=== PATIENT | female | born 1945 | race Caucasian/White ===

== ENCOUNTER 2016-12-29 08:47 | Day surgery (SDC) | payer MEDICARE ==
[~2016-12-29] VITALS: Ht 170.2 cm; Wt 85.0 kg
[2016-12-29] VITALS (9 sets, daily range): BP systolic 123–178; BP diastolic 60–83; PULSE 68–80; RESP 16–20; TEMP 98.1–98.2; O2SAT 93–97
[~2016-12-29 08:47] MED LIST: ACIP20TA19 PO; ESTR42.5V PV; HYDR-2768 PO; LIPI40TA PO; LYRI50CA2 PO; METF-324 PO; NAPR-576 PO; POTA595T2 PO; TORS20 PO
[2016-12-29] MEDS ORDERED: SODIUM CHLOR 0.9% 1000 ML IV SCH (09:00)
[2016-12-29] MEDS ORDERED: ACIP20TA6 PO (09:22)
[2016-12-29] MEDS ORDERED: POTA595T (09:22)
[2016-12-29] MEDS ORDERED: METF1000 PO (09:22)
[2016-12-29] MEDS ORDERED: LYRI50CA PO (09:22)
[2016-12-29] MEDS ORDERED: EPIN0.3A2 (09:22)
[2016-12-29] MEDS ORDERED: TORS1TAB12 PO (09:22)
[2016-12-29] MEDS ORDERED: NAPR500T PO (09:22)
[2016-12-29] MEDS ORDERED: LIPI40TA PO (09:22)
[2016-12-29 09:50] LABS: AUTOMATED NEUTROPHIL # 8.1 TH/MM3 (1.8-7.7); BASOPHIL # 0.1 TH/MM3 (0-0.2); BASOPHIL % 0.8 % (0.0-2.0); EOSINOPHIL # 0.2 TH/MM3 (0-0.4); EOSINOPHIL % 1.9 % (0.0-4.0); HEMATOCRIT 35.9 % (35.0-46.0); HEMO FLAGS DIFF FINAL; LYMPH % 19.4 % (9.0-44.0); LYMPHOCYTE # 2.2 TH/MM3 (1.0-4.8); MEAN CELL VOLUME 75.7 FL (80.0-100.0); MEAN CORPUSCULAR HEMOGLOBIN 22.8 PG (27.0-34.0); MEAN CORPUSCULAR HGB CONC 30.2 % (32.0-36.0); MONO % 5.4 % (0.0-8.0); NEUT % 72.5 % (16.0-70.0); PLATELET COUNT 385 TH/MM3 (150-450); RED BLOOD COUNT 4.74 MIL/MM3 (4.00-5.30); RED CELL DISTRIBUTION WIDTH 17.9 % (11.6-17.2); WHITE BLOOD COUNT 11.1 TH/MM3 (4.0-11.0)
[2016-12-29 10:03] LABS: APTT (PATIENT) 24.5 SEC (24.3-30.1)
[2016-12-29] MEDS ORDERED: LIDOCAINE 1%/EPINEPHrine 1:100,000 SOLN 20 ML VIAL ONE (11:29)
[2016-12-29] MEDS ORDERED: MIDAZOLAM HCL 2 MG/2 ML VIAL ONE ×2 (11:49)
--- NOTE | 2016-12-29 12:25 | PD.RAD ---
Post CT Procedure Prog Note Pre Procedure Diagnosis: (1) Hepatic steatosis Post Procedure Diagnosis: (1) Hepatic steatosis Procedure Date: Dec 29, 2016 Supervising Radiologist: Tera Segundo Estimated blood loss: none Anesthesia: Conscious Sedation Plan of Activity Patient to Unit: ROPU Patient Condition: Good Additional Comments: no complications See PACS Report for procedural detail/treatment Biopsy Imaging Guidance: CT Side: Left, Right Biopsy Procedure: Liver Site: left lobe liver--random biopsy Specimen: Core Biopsy Plan to ROPU then discharge in 4 hours if d/c criteria met. Tera Segundo MD Dec 29, 2016 12:25
--- NOTE | 2016-12-29 13:04 | RADRPT ---
EXAM DATE/TIME: 12/29/2016 12:04 [place] COMPARISON: No previous studies available for comparison. Outside CT and ultrasound examination were reviewed. INDICATIONS : Elevated liver function tests. SEDATION TIME: 15 minutes BIOPSY SITE: liver MEDICATION(S): 1.) 4 mg midazolam (Versed) IV DEVICE(S): 1.) 18 gauge Temno core biopsy needle MEDICAL HISTORY : Diabetes mellitus type 2. Renal calculi. Gastroesophageal reflux disease. SURGICAL HISTORY : Hysterectomy. Appendectomy. ENCOUNTER: Initial ACUITY: 1 day PAIN SCORE: 0/10 LOCATION: Bilateral abdomen A total of two core specimen(s) were obtained and sent to the laboratory for pathologic evaluation. PROCEDURE: 1. CT guided liver biopsy. 2. Conscious sedation with continuous EKG and oximetry monitoring. 3. EKG and oximetry remained stable throughout the procedure. Prior to the procedure informed consent was obtained. Any appropriate prior imaging studies were rev iewed. Using automated exposure control and adjustment of the mA and/or kV according to patient size, radiat ion dose was kept as low as reasonably achievable to obtain optimal diagnostic quality images. DICOM format image data is available electronically for review and comparison. The site was prepped in a sterile fashion. Full sterile technique was used, including cap, mask, mattie rile gloves and gown and a large sterile sheet. Hand hygiene and 2% chlorhexidine and/or betadine/al cohol prep was utilized per protocol for cutaneous antisepsis. The skin and subcutaneous tissues wer e infiltrated with local anesthetic solution. With CT guidance the left lobe of the liver was localized. Biopsy was performed using the prescribed needle as above. Adequate hemostasis was obtained with compression at the puncture site. Follow-up CT scan reveals no hemorrhage. The patient tolerated the procedure well and there were no complications. The patient was returned to the Radiology Outpatient Unit in stable condition. CONCLUSION: Uncomplicated CT guided liver biopsy. Tera Segundo MD on December 29, 2016 at 13:01 Board Certified Radiologist. This report was verified electronically.
== END 2016-12-29 15:45 | disposition home or self-care (01) ==
LOC: HRAD 08:47 → HRIP 08:50 → HRAD 15:45
DX: K75.81 Nonalcoholic steatohepatitis (NASH) (principal); E11.9 Type 2 diabetes mellitus without complications; K21.9 Gastro-esophageal reflux disease without esophagitis; N20.0 Calculus of kidney; Z01.818 Encounter for other preprocedural examination
CPT/HCPCS: 47000; 77012; 85025; 85610; 85730; 88307; 88313; J2250

== ENCOUNTER 2018-07-27 10:00 | Inpatient (IN) ==
--- NOTE | 2018-07-26 14:36 | P.HPNS ---
History of Present Illness Service: Neurosurgery Primary Care Physician: UNKNOWN Chief Complaint: Low back pain radiating down bilateral lower extremities. History of Present Illness: Pt presented to our office for an evaluation of low back pain radiating into the lower extremities right more than left. She states the pain radiates into the posterior aspect but not past the knee usually, sometimes it goes into the foot. She has numbness in the heel. She states her worst pain is in the back. She has pain in bilateral buttocks. She states she has a left foot drop but ambulates without any walker, cane, or AFO brace. She denies any bowel or bladder incontinence but has urgency of urine. She had physical therapy which didn't help. She has been to her Magnet[facility] Operator who did trigger point injections which didn't help. She has not had any pain management recently but states she has had it in the past. - Diagnosis (1) Degenerative spondylolisthesis (2) Degeneration of lumbar intervertebral disc (3) Diabetic peripheral neuropathy Inpatient Certification: I certify that the inpatient services were ordered in accordance with Medicare regulations governing the order. This includes certification that hospital inpatient services are reasonable and necessary and in the case of services not specified as inpatient-only under 42 CFR 419.22(n), that they are appropriately provided as inpatient services in accordance to with the 2-midnight benchmark under 43 CFR 412.3(e) Review of Systems Constitutional: Denies chills, Denies fever(s) Eyes: Denies blurry vision, Denies double vision Ears, Nose, Mouth, and Throat: Denies hoarseness, Denies nasal congestion, Denies sinus pain, Denies sore throat Cardiovascular: Denies chest pain, Denies shortness of breath Respiratory: Denies cough, Denies shortness of breath, Denies wheezing Gastrointestinal: Denies abdominal pain, Denies constipation, Denies incontinent of stools Genitourinary: Reports urinary urgency, Denies urinary incontinence Musculoskeletal: Reports back pain, Reports muscle weakness, Reports numbness ( In right heel.) Neurologic: Reports localized weakness, Reports numbness (right heel.), Reports sensory deficit (Right heel.), Denies memory loss Psychiatric: Denies memory loss [facility] - History History Provided By: Patient - Medical History Medical History: Medical History (Last Reviewed 07/27/18 @ 11:56 by Mohini Gian, RN) Back pain DDD (degenerative disc disease) Fibromyalgia Gastric reflux Herniated disc History of high cholesterol Hx of diabetes mellitus Hx of renal calculi Skin cancer Sleep apnea with use of continuous positive airway pressure (CPAP) - Surgical History Surgical History: Surgical History (Last Reviewed 07/27/18 @ 11:56 by Mohini Springer RN) History of cataract extraction with lens replacement Hx of appendectomy Hx of section Hx of lithotripsy Hx of oophorectomy - Family History Family History: Family History (Last Updated 07/26/18 @ 15:15 by MINISTERIO Grayson) Father Myocardial infarction Mother Colon cancer Sister Breast cancer - Social History I have reviewed the patient's Social History: Yes - Tobacco History Second Hand Smoke Exposure: No Smoking Status: Never smoker - Alcohol History How Often Do You Have a Drink Containing Alcohol: Never - Substance Use History Substance History: No History of Abuse Medications and Allergies Allergies Allergy/AdvReac Type Severity Reaction Status Date / Time bee venom protein (honey bee) Allergy Severe Anaphylaxis Verified 07/27/18 12:07 codeine Allergy Severe Hives Verified 07/27/18 12:07 hydrocodone Allergy Severe HIVES Verified 07/27/18 12:07 hydromorphone Allergy Severe HIVES Verified 07/27/18 12:07 Latex, Natural Rubber Allergy Severe Skin Verified 07/27/18 12:07 Discoloration oxycodone Allergy Severe Hives Verified 07/27/18 12:07 penicillin G Allergy Severe Hives Verified 07/27/18 12:07 propoxyphene Allergy Severe HIVES Verified 07/27/18 12:07 tramadol Allergy Respiratory Verified 07/27/18 12:07 Failure Home Medications Medication Instructions Recorded Confirmed Type ascorbic acid (vitamin C) [Vitamin 500 mg PO BID 02/13/18 07/27/18 History C] atorvastatin 40 mg PO DAILY 02/13/18 07/27/18 History cholecalciferol (vitamin D3) 2,000 unit PO DAILY 02/13/18 07/27/18 History [Vitamin D3] gabapentin 300 mg PO QID 02/13/18 07/27/18 History glipizide 7.5 mg PO DAILY 02/13/18 07/27/18 History metformin 500 mg PO BID 02/13/18 07/27/18 History omeprazole 20 mg PO DAILY 02/13/18 07/27/18 History potassium gluconate 550 mg PO BID 02/13/18 07/27/18 History torsemide 20 mg PO DAILY 02/13/18 07/27/18 History epinephrine [EpiPen] 0.3 mg IM Q15M PRN 07/20/18 07/27/18 History vitamin E 400 unit PO DAILY 07/20/18 07/27/18 History Exam - Constitutional no acute distress, cooperative - Routine HEENT Exam Head: Present: normocephalic, atraumatic Eye: Present: PERRL. Absent: conjunctival icterus ENT: Present: mucous membranes moist, oropharynx clear - Routine Neck Exam Present: supple, trachea midline - Routine Respiratory Exam Present: CTA bilaterally. Absent: respiratory distress, rhonchi, wheezes - Routine Cardiovascular Exam Present: RRR, S1, S2. Absent: murmur - Routine Abdominal Exam Present: soft, normoactive bowel sounds. Absent: distended, firm - Routine Extremities Exam Absent: cyanosis - Routine Skin Exam Absent: cyanosis, erythema - Routine Neurological Exam Present: motor deficit (She has 4/5 left dorsiflexion weakness.), moving all extremities. Absent: alert, oriented X3, altered mental status Caprini VTE Risk Assessment Caprini VTE Risk Assessment: Moderate/High Risk (score >= 2) VTE Pharmacological Exception Reason: Spinal surgery Caprini Risk Assessment Model: Point Value = 1 Point Value = 2 Point Value = 3 Point Value = 5 Age 41-60 Minor surgery BMI > 25 kg/m2 Swollen legs Varicose veins or History of unexplained or recurrent spontaneous Oral contraceptives or hormone replacement Sepsis (< 1 month) Serious lung disease, including pneumonia (< 1 month) Abnormal pulmonary function Acute myocardial infarction Congestive heart failure (< 1 month) History of inflammatory bowel disease Medical patient at bed rest Age 61-74 Arthroscopic surgery Major open surgery (> 45 min) Laparoscopic surgery (> 45 min) Malignancy Confined to bed (> 72 hours) Immobilizing plaster cast Central venous access Age >= 75 History of VTE Family history of VTE Factor V Leiden Prothrombin [id number] Lupus anticoagulant Anticardiolipin antibodies Elevated serum homocysteine Heparin-induced thrombocytopenia Other congenital or acquired thrombophilia Stroke (< 1 month) Elective arthroplasty Hip, pelvis, or leg fracture Acute spinal cord injury (< 1 month) Prophylaxis Regimen: Total Risk Factor Score Risk Level Prophylaxis Regimen 0-1 Low Early ambulation 2 Moderate Order ONE of the following: *Sequential Compression Device (SCD) *Heparin 5000 units SQ BID 3-4 Higher Order ONE of the following medications: *Heparin 5000 units SQ TID *Enoxaparin/Lovenox 40 mg SQ daily (WT < 150 kg, CrCl > 30 mL/min) *Enoxaparin/Lovenox 30 mg SQ daily (WT < 150 kg, CrCl > 10-29 mL/min) *Enoxaparin/Lovenox 30 mg SQ BID (WT < 150 kg, CrCl > 30 mL/min) AND/OR *Sequential Compression Device (SCD) 5 or more Highest Order ONE of the following medications: *Heparin 5000 units SQ TID (Preferred with Epidurals) *Enoxaparin/Lovenox 40 mg SQ daily (WT < 150 kg, CrCl > 30 mL/min) *Enoxaparin/Lovenox 30 mg SQ daily (WT < 150 kg, CrCl > 10-29 mL/min) *Enoxaparin/Lovenox 30 mg SQ BID (WT < 150 kg, CrCl > 30 mL/min) AND *Sequential Compression Device (SCD) Assessment and Plan - Assessment (1) Degenerative spondylolisthesis Code(s): M43.10 - Spondylolisthesis, site unspecified Status: Acute (2) Degeneration of lumbar intervertebral disc Code(s): M51.36 - Other intervertebral disc degeneration, lumbar region Status : Acute (3) Diabetic peripheral neuropathy Code(s): E11.42 - Type 2 diabetes mellitus with diabetic polyneuropathy Status : Acute - Plan We have discussed treatment options with the patient which include continued conservative treatment options versus surgical intervention. She states she her pain is affecting her life. She complains of weakness in her legs. She wants to proceed with surgical intervention. Dr. Mckoy has discussed with the patient a L4/L5 and L5/S1 interbody fusion with cage and pedicle screw fixation. The procedure as well as risks, benefits, alternative, and recovery time were discussed in detail with the patient. We have discussed risks of surgery include bleeding, infection, muscle weakness, voice hoarseness, difficulty swallowing, heart attack, stroke, among others. She understands the risks and request that we proceed and she was therefore scheduled accordingly.
[~2018-07-27 10:00] MED LIST changes: -ACIP20TA19 PO; -ESTR42.5V PV; +Gelatin Size 100 Topical Foam ONE; -HYDR-2768 PO; -LIPI40TA PO; -LYRI50CA2 PO; -METF-324 PO; -NAPR-576 PO; -POTA595T2 PO; -TORS20 PO; +Thrombin Topical Soln 5,000 UNIT Vial TOPICAL ONE
[2018-07-27] MEDS ORDERED: Propofol Inj 500 MG/50 ML Vial ONE (12:12)
[2018-07-27] MEDS ORDERED: fentaNYL Citrate Inj 250 MCG/5 ML Ampul ONE (12:12)
[2018-07-27] MEDS ORDERED: Chlorhexidine Gluconate 2% 1 Pack (2 Cloths) TOPICAL ONE (12:44)
[2018-07-27] MEDS ORDERED: Metoprolol Tartrate 25 MG Tablet PO ONE (12:44)
[2018-07-27] MEDS ORDERED: Sodium Chlor 0.9% Inj 500 ML IV.SIG SCH (13:00)
[2018-07-27] MEDS ORDERED: Sod Chloride 0.9% Inj 1,000 ML IV.SIG SCH (13:00)
[2018-07-27] MEDS ORDERED: Lidocaine PF 1% Inj 5 ML Syringe INFILTRATN ONE (13:14)
[2018-07-27] MEDS ORDERED: Bupivacaine Liposomal PF 1.3% Inj 20 ML Vial ONE (16:54)
[2018-07-27] MEDS ORDERED: Naloxone Inj 0.4 MG/ML Vial IV.PUSH PRN (18:37)
[2018-07-27] MEDS ORDERED: fentaNYL Citrate Inj 100 MCG/2 ML Ampul ONE (18:41)
[2018-07-27] MEDS ORDERED: Morphine Inj 4 MG/ML Vial ONE (18:41)
[2018-07-27] MEDS ORDERED: Bisacodyl 10 MG Supp RECTAL PRN (18:42)
[2018-07-27] MEDS ORDERED: Labetalol HCl Inj 100 MG/20 ML Vial IV.PUSH PRN (18:54)
[2018-07-27] MEDS ORDERED: Acetaminophen 325 MG Tablet PO PRN (18:59)
[2018-07-27] MEDS ORDERED: Morphine Inj 30 MG/30 ML PCA.VIAL PCA ONE (18:59)
--- NOTE | 2018-07-27 18:59 | P.OP ---
Preoperative Diagnosis: Lumbar spondylolisthesis Mechanical back pain Lumbar radiculopathy Postoperative Diagnosis: Lumbar spondylolisthesis Mechanical back pain Lumbar radiculopathy Date of procedure: 07/27/18 Procedure: L4-L5, L5-S1 right laminectomy, interbody arthrodhesis using PEEK cage and autologous bone graft, L4-L5 instrumental fixation using transpedicular screws and rods, L4-L5 posterolateral fusion using autologous bone graft and demineralized bone matrix. Microsurgical dissection Anesthesia: GETA Surgeon: Azar Mckoy MD Addiction Professional: DARIUS Grayson Pathology: none sent Operation and Findings: INDICATIONS FOR THE SURGICAL PROCEDURE Ms Snider is a 73 year-old female who presented with intractable mechanical back pain and karen evidence of lower extremity radiculopathy secondary to severe degenerative disk disease and spondylolisthesis. 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 She failed maximum nonsurgical management including multiple modalities of conservative treatment as well as pain management interventions by an interventional pain specialist. A surgical decompression and arthrodhesis were indicated as a last resort. The gauy-ry-mrib details of the procedure, indications, alternatives, risks and potential complications were fully discussed with the patient. The patient fully understood. All the questions were answered. No guarantees were given. The patient voiced requesting the procedure and provided informed consents. The patient was offered the alternative of delaying the procedure and continuing with nonsurgical management. DETAILS OF THE SURGICAL PROCEDURE Prior to the procedure, the surgical incision was marked in the preoperative surgical holding room, and the procedure, risks, and potential complications revisited with the patient. Placement of electrodes for intraoperative neurophysiological monitoring was completed. The patient was taken to the operative room, and following induction of general anesthesia, endotracheal intubation was performed. A Ruelas catheter, bilateral RAHUL hose and sequential compression devices were placed and kept throughout the procedure. The patient was positioned prone, over a Leland table over a Mariano frame. All pressure in the preoperative surgical holding room points were carefully padded with eggcrate and gel mattress. The eyes were tapped shut after ointment was applied by the nesthesiologist to prevent corneal abrasion. A Xochitl hugger was placed over the exposed lower body to maintain control of the core body temperature. The electrophysiological team placed the needles and electrodes in their proper location and baseline SSEP's and motor evoked potentials were registered prior and following the positioning. The entrance to each pedicles was marked using a C arm. The lumbar region was prepped and draped in the usual sterile fashion. The surgical procedure was performed in several steps as follow: SURGICAL APPROACH Once the patient was positioned, a localizing cross-table lateral x-ray was performed with a C-arm. Two paramedian small incisions were outlined on the skin approximately 3cm from the midline. The skin incisions were made with a # 10 blade. Small bleeders were controlled with the cautery. The dissection was then carried out into deper planes and through the thoracolumbar fascia with a Bovie. The intermuscular septum was identified and the myscles were blunted dissected along the septum. The facets and transverse process of L4, L5 and S1 were exposed and the proper anatomical landmarks were identidied. A microsurgical self-retaining retractor was placed on the incision, and a localizing lateralizing cross-table x-ray was performed with an instrument underneath a lamina of the lumbar spine. There was a bilateral pars defect with gross instability of the bony structures. INSTRUMENTAL FIXATION At this point in the procedure, placement of bilateral transpedicular screws was necessary for stabilization of the spine. Initially, the entry point for the screw was selected anatomically at the junction of the facet, with the transverse process, and the pars interarticularis at L5 and at the sacrum. This was started with a Giamshetti needle followed by the use of a egan wire. A tap was used to create the threads for the screws. Finally bilateral transpedicular screws were carefully placed bilaterally at L4, L5, and and S1 under fluoroscopic visualization. An appropriate purchase was achieved with all screws. The position of each screw was assessed anatomically with an AP, lateral , oblique Xrays. An intraoperative scan view of the spine was then performed using the iso-centric c-arm. Each screw was then assessed electrophysiologically with a nerve stimulator. SURGICAL DECOMPRESSION There was significant mass effect with compression of the neural structures. In order to relieve neural compression, it was necessary to perform a decompressive laminectomy, with decompression of the spinal canal and bilateral lateral recesses. Note that the scope of such decompression was significantly more extensive than the minimal exposure necessary to perform an interbody fusion, as there was extreme facet arthropathy with near complete collapse of the disk spaces and severe stenosis cause by the hyperthrophic joint facets. At this point of the procedure the operative microscope was draped in the usual sterile fashion and brought to the field. The rest of the surgical procedure was performed using microdissection technique with the exception of the closure. Under the operating microscope, a decompressive laminectomy was carried out at L5-S1 as follow: The laminae, base of the spinous processes and facets were carefully drilled exposing the ligamentum flavum. The facets were abnormal with severe facet arthropathy, vacuum facets, and mass effect over the neural structures. A broad disk protusion was contributing to compression of the neural structures and exiting L5, and S1 nerve roots. A near complete facetectomy was necessary resulting in further mechanical instability. The ligamentum flavum appeared hypertrophic, resulting on mass effect on the dorsal surface of the neural structures. The superior free border of the ligamentum flavum was elevated with a ligament dissector and the ligamentum flavum was removed with a 3 and 4 mm Kerrison forceps. The ligament was very adherent to the dural sac and during the dissection, ans extreme care was taken during the dissection. The exiting nerve roots were identified, and a wide foraminotomy was performed with a Kerrison in their trajectory towards the neural foramenat both levels. Epidural veins located laterally to the dural sac were coagulated with the bipolar cautery, and then incised using microscissors. Gentle medial retraction of the dural sac allowed me to expose the disc space for the discectomy. Upon completion of the discectomy, an excellent decompression of the neural structures was achieved. Increased motion was noted thorough the procedure, which was consistent with mechanical instability. INTERBODY ARTHRODHESIS In order to correct the narrowing of the disk space and maintain distraction of the space, and to achieve a solid interbody fusion, it was necessary the insertion of an interbody device into the disk space. Otherwise, the disk space would collapse, compromising the result of the surgical procedure. At this point of the procedure, the annulus fibrosus of the disk was carefully coagulated with a bipolar cautery and incised using an 11 bladed knife. Then, a microdiscectomy was carried out in a standard fashion using a combination of straight and up-biting pituitary forceps. A reverse angle curette was applied underneath the posterior longitudinal ligament, and used to push the disk fragments into the disk space, so they can be safely removed with a pituitary forceps. Once the discectomy was completed, it was necessary to decorticate the endplates, in order to eliminate the cartilaginous endplate and to expose healthy bone appropriate to perform the interbody fusion. The endplates at L4-5 , and L5-S1 were then thoroughly decorticated using increasing size bone jasbir and ring curets, eliminating the cartilaginous fragments from both, the superior and inferior endplates. A disk space distractor was applied to the pedicle screws and gentle distraction was applied. This maneuver was assisted by the use of a disk distractor. Increased motility was noted at the disk, which was consistent with instability due to facet arthropathy. Once a thorough preparation of the disk space was achieved, the disk space was irrigated with antibiotic solution, and the interbody fusion was performed by carefully impacting PPEK cages filled with autologous iliac crest bone graft. The use of several shoe impactors with different angulation, allowed me for an excellent, proper position of the interbody cage. A solid position of the cage with good purchase was achieved. The position of the cages were assessed anatomically with a probe and radiologically with the C-arm. POSTEROLATERAL FUSION Initially, the transverse processes of the vertebral bodies, lateral surface of the facets and the lateral gutters of the spine were carefully cleaned, eliminating all soft tissue and muscle attachments. The area was then irrigated with a large amount of antibiotic solution. Subsequently, the transverse processes, lateral surface of the facets, and lateral gutters of the spine were thoroughly decorticated using the TPS drill with a 5mm cutting kylah, exposing cancellous bone, in preparation for the posterolateral fusion. The incision was again irrigated with antibiotic solution. Then, the posterolateral fusion was then performed by carefully packing the lateral gutters of the spine at L4-5, and L5-S1 with autologous iliac crest bone combined with demineralized bone matrix. I packed as much bone as possible. COMPLETION OF THE INSTRUMENTATION AND CLOSURE The rods were brought to the field, applied to all the screws, and the screw caps were sequentially applied. Compression was performed between the pedicle screws, and final tightening of the screws was completed using a torque wrench. A cross-link was used to connect the rods, in order to increase the stability of the construct. The cross link was secured using a torque wrench previously calibrated. The incision was again thoroughly irrigated with several liters of antibiotic solution, and hemostasis secured with the bipolar cautery. A Valsalva Maneuver performed by the anesthesiologist failed to show any evidence of cerebrospinal fluid leak or bleeding. A 7 mm Leland-Echeverria drain was left in the epidural space and externalized through a separate stab incision. The incision was then closed in planes. 0 Vicryl was used in an interrupted fashion to close the thoracolumbar fascia and the superficial fascia. The subcutaneous tissue was then approximated using 3-0 Vicryl in an interrupted fashion. Special care was taken to avoid space. The skin was then closed with 4-0 Vicryl in a running, subcuticular fashion. Dermabond was applied to the skin. Each plane of closure was irrigated with antibiotic solution. At the end of the procedure the sponge, needle and instrument counts were all correct. Estimated blood loss was 150 cc or less. No blood transfusion was given. The entire procedure was performed using continuous electrophysiological monitoring of the somatosensorial evoked potentials and EMG. The patient received prophylactic antibiotics. The patient was then extubated and transferred to the recovery room in stable condition.
[2018-07-27] MEDS ORDERED: Clindamycin 600 mg/NS Premix 600 MG/50 ML PIGGYBACK IV.SIG PRN (19:18)
[2018-07-27] MEDS ORDERED: *morphine SULFATE 4 MG/ML PERIprocedure ONLY ONE ×2 (19:45→20:16)
[2018-07-27] MEDS: Sod Chloride 0.9% Inj 1,000 ML IV.SIG SCH (19:55)
--- NOTE | 2018-07-27 20:16 | P.CONCC ---
History of Present Illness Service: Critical care medicine Consult date: 07/27/18 Requesting Physician: Shaun Castillo Reason for Consult: perioperative management of medical comorbidities Primary Care Provider: Jose Armando Bailey MD Chief Complaint: Low back pain radiating down bilateral lower extremities. History of Present Illness: This is a 73-year-old female with a history of lumbar spondylolisthesis who underwent elective L4-5, L5-S1 right laminectomy, interbody arthrodesis, fixation and fusion. She arrives to the PACU and extubated in stable condition. I evaluated the patient in PACU. She endorses mild back pain which is appropriate for her level of operation. She states this level of pain is tolerable. She has a [employer] pump and is using it. She denies sore throat, headache, nausea, vomiting, chest pain, shortness of breath. Remainder review of systems is negative. Review of Systems All other systems reviewed negative except as stated in HPI PMFSH - History History Provided By: Patient, Medical Record - Medical History Medical History: Medical History (Last Reviewed 07/27/18 @ 20:26 by Noel Adam MD) Back pain DDD (degenerative disc disease) Fibromyalgia Gastric reflux Herniated disc History of high cholesterol Hx of diabetes mellitus Hx of renal calculi Skin cancer Sleep apnea with use of continuous positive airway pressure (CPAP) - Surgical History Surgical History: Surgical History (Last Reviewed 07/27/18 @ 20:26 by Noel Adam MD) History of cataract extraction with lens replacement Hx of appendectomy Hx of section Hx of lithotripsy Hx of oophorectomy - Family History Family History: Family History (Last Reviewed 07/27/18 @ 20:26 by Noel Adam MD) Father Myocardial infarction Mother Colon cancer Sister Breast cancer - Social History I have reviewed the patient's Social History: Yes - Tobacco History Second Hand Smoke Exposure: No Tobacco Use In Past 30 Days: No Smoking Status: Never smoker - Alcohol History How Often Do You Have a Drink Containing Alcohol: Never - Substance Use History Substance History: No History of Abuse - Travel History Recent Travel in the [place] Within the Last 8 Weeks: No Recent Travel Out of the Country Within the Last 8 Weeks: No Medications and Allergies Active Medications: Active Medications Acetaminophen (Tylenol) 650 mg PO Q4H PRN PRN Reason: TEMPERATURE > 101.5 F Al Hydroxide/Mg Hydroxide (Milk Of Magnesia Liq) 30 ml PO Q12H PRN PRN Reason: Mild Constipation Albuterol (Albuterol Neb (Prn)) 2.5 mg NEB Q4HR NEB PRN PRN Reason: WHEEZING Ascorbic Acid (Vitamin C) 500 mg PO BID [facility] Atorvastatin Calcium (Lipitor) 40 mg PO DAILY [facility] Last Admin: 07/27/18 20:05 Dose: 40 mg Bisacodyl (Dulcolax Supp) 10 mg RECTAL DAILY PRN PRN Reason: SEVERE CONSITIPATION Clonidine HCl (Catapres) 0.1 mg PO Q6H PRN PRN Reason: SYS BP GREATER THAN 170 MMHG Cyclobenzaprine HCl (Flexeril) 10 mg PO Q8H PRN PRN Reason: MUSCLE SPASM Diphenhydramine HCl (Benadryl Inj) 25 mg IV.PUSH Q6H PRN PRN Reason: for itching Gabapentin (Neurontin) 300 mg PO QID [facility] Glipizide (Glucotrol) 7.5 mg PO DAILYAC [facility] Linezolid (Zyvox 600 Mg Premix) 300 mls @ 600 mls/hr IV.SIG [employer] [facility] Stop: 07/27/18 23:59 Last Infusion: 07/27/18 13:15 Dose: Infused Lactated Ringer's (Lr 1000 Ml Inj) 1,000 mls @ 30 mls/hr IV.SIG .Q24H [facility] Stop: 07/28/18 12:44 Last Admin: 07/27/18 12:00 Dose: 30 mls/hr Sodium Chloride (Ns Inj) 500 mls @ 30 mls/hr IV.SIG .Q10H [facility] Morphine Sulfate (Morphine Inj) 30 mg in 30 mls @ 0 mls/hr [employer] UNSCH PRN PRN Reason: prn pain Sodium Chloride (Ns Inj) 1,000 mls @ 70 mls/hr IV.SIG .[id number] [facility] Last Admin: 07/27/18 19:55 Dose: 70 mls/hr Clindamycin Phosphate 600 mg/ (Sodium Chloride) 104 mls @ 200 mls/hr IV.SIG [employer] [facility] Stop: 07/27/18 23:59 Labetalol HCl (Trandate Inj) 10 mg IV.PUSH Q1H PRN PRN Reason: SYS BP GREATER THAN 170 MMHG Lactulose (Lactulose Liq) 30 ml PO DAILY PRN PRN Reason: SEVERE CONSITIPATION [facility] Miscellaneous (Pill Splitter) 1 each OTHER UNSCH PRN PRN Reason: PILL SPLITTER Miscellaneous Information ([facility] Nursing Information) 0 each OTHER UNSCH PRN PRN Reason: SEE LABEL COMMENTS Stop: 07/28/18 18:29 Morphine Sulfate (Morphine Inj) 2 mg IV.PUSH Q2HR PRN PRN Reason: BREAKTHROUGH PAIN Naloxone HCl (Narcan Inj) 0.4 mg IV.PUSH PRN PRN PRN Reason: Resp rate < 10 Ondansetron HCl (Zofran Inj) 4 mg IV.PUSH Q6H PRN PRN Reason: NAUSEA Pantoprazole Sodium (Protonix) 40 mg PO DAILY [facility] Pt:Potassium (Gluconate 550 Mg) 0 each PO BID [facility] Senna/Docusate Sodium (Shari-Colace) 1 tab PO BID [facility] Sennosides (Senokot) 17.2 mg PO Q12H PRN PRN Reason: Moderate Constipation Torsemide (Demadex) 20 mg PO DAILY [facility] Vitamin D (Vitamin D3) 2,000 unit PO DAILY [facility] Vitamin E (Vitamin E) 400 unit PO DAILY [facility] Allergies Allergy/AdvReac Type Severity Reaction Status Date / Time bee venom protein (honey bee) Allergy Severe Anaphylaxis Verified 07/27/18 12:07 codeine Allergy Severe Hives Verified 07/27/18 12:07 hydrocodone Allergy Severe HIVES Verified 07/27/18 12:07 hydromorphone Allergy Severe HIVES Verified 07/27/18 12:07 Latex, Natural Rubber Allergy Severe Skin Verified 07/27/18 12:07 Discoloration oxycodone Allergy Severe Hives Verified 07/27/18 12:07 penicillin G Allergy Severe Hives Verified 07/27/18 12:07 propoxyphene Allergy Severe HIVES Verified 07/27/18 12:07 tramadol Allergy Respiratory Verified 07/27/18 12:07 Failure Home Medications Medication Instructions Recorded Confirmed Type ascorbic acid (vitamin C) [Vitamin 500 mg PO BID 02/13/18 07/27/18 History C] atorvastatin 40 mg PO DAILY 02/13/18 07/27/18 History cholecalciferol (vitamin D3) 2,000 unit PO DAILY 02/13/18 07/27/18 History [Vitamin D3] gabapentin 300 mg PO QID 02/13/18 07/27/18 History glipizide 7.5 mg PO DAILY 02/13/18 07/27/18 History metformin 500 mg PO BID 02/13/18 07/27/18 History omeprazole 20 mg PO DAILY 02/13/18 07/27/18 History potassium gluconate 550 mg PO BID 02/13/18 07/27/18 History torsemide 20 mg PO DAILY 02/13/18 07/27/18 History epinephrine [EpiPen] 0.3 mg IM Q15M PRN 07/20/18 07/27/18 History vitamin E 400 unit PO DAILY 07/20/18 07/27/18 History Physical Exam Vital signs: Vital Signs 07/27/18 12:15 07/27/18 18:30 07/27/18 18:32 Temperature 36.8 C 36.3 C L Pulse Rate 65 80 83 Respiratory Rate 18 12 8 L Blood Pressure 153/80 H 142/68 H 154/72 H Pulse Oximetry 97 95 96 07/27/18 18:45 07/27/18 19:00 07/27/18 20:05 Temperature Pulse Rate 81 81 Respiratory Rate 12 13 15 Blood Pressure 149/71 H 147/65 H Pulse Oximetry 96 94 L Intake & Output 07/27/18 07/27/18 07/28/18 06:59 18:59 06:59 Intake Total 2700 / 2700 Output Total 650 / 650 Balance 2049 / 2049 Weight 82.1 kg Intake: IV 300 / 300 Zyvox 600 mg Premix 300 ML @ 300 / 300 600 mls/hr IV.SIG [employer] [facility] Rx#:[id number] Anesthesia Amount 2400 / 2400 Output: Estimated Blood Loss 150 / 150 Urine Amount (Catheter) 500 / 500 Indwelling Urethral Catheter 500 / 500 Other: Weight On Admission 82.1 kg Narrative: GENERAL: Elderly female, lying in bed, no acute distress, arousing from anesthesia HEENT: Normocephalic. Atraumatic. Pupils equal, round, reactive, conjugate. Mucous membranes are moist NECK: Trachea is midline. There is no JVD. CHEST: Equal chest rise. Nasal cannula oxygen. CARDIOVASCULAR: Normal rate, regular rhythm. Sinus. ABDOMEN: Soft, nontender, nondistended. No guarding. MUSCULOSKELETAL: Pulses 2+. No peripheral edema. A RADHA drain exits the lumbar back with a minimal amount of sanguinous output. There is a dressing over the lumbar spine clean dry and intact. NEUROLOGICAL: RASS -1. Arouses easily. Follows commands in all 4 extremities. Muscular skeletal strength appears to be 5/5 in all 4 extremities. Sensation grossly intact. No focal deficits. - Urinary Catheter Management Indwelling Urethral Catheter Cath placed during this visit: yes Reason for continuing: Hourly intake/output Insertion date: 07/27/18 Insertion time: 13:35 Assessment and Plan - Assessment and Plan Plan: Assessment: 73-year-old female postop day 0 status post L4-5, L5-S1 laminectomy and fusion. Admit to ICU for close observation. s/p L4/5, L5/S1 laminectomy and fusion 07/[address] Mckoy - frequent neuro checks - monitor RADHA drain output - avoid anticoagulants TRACEY - wean o2 for goal spo2 > 90% - watch closely given iv narcotics for signs of obstruction - NIPPV if necessary. - prn nebs Diabetes - SSI - hold home oral hypoglycemics in the setting of recent operation. may restart POD 1 or 2. GERD - home ppi Hyperlipidemia - home statin Fibromyalgia - restart home gabapentin SCDs Critical care medicine will continue to follow along.
[2018-07-27] MEDS ORDERED: Dextrose 50% in Water 50 ML Vial IV.PUSH PRN (20:31)
[2018-07-27] MEDS ORDERED: POTASSIUM GLUCONATE 550 MG PO SCH (21:00)
[2018-07-27] MEDS: Gabapentin 300 MG Capsule PO SCH (21:01)
[2018-07-27] MEDS: Senna/Docusate Sodium 8.6/50 MG Tablet PO SCH (21:01)
[2018-07-27] MEDS: Ascorbic Acid 500 MG Tablet PO SCH (21:01)
--- NOTE | 2018-07-27 21:06 | XR ---
EXAM DATE: 07/27/2018 9:03 PM EST AGE/SEX: 73 years / Female INDICATIONS: Lumbar fusion. L4-S1. CLINICAL DATA: This is the patient's initial encounter. Patient reports that signs and symptoms have been present for 1 day and indicates a pain score of Nonresponsive. MEDICAL/SURGICAL HISTORY: Non-responsive. . COMPARISON: No prior exams available for comparison. FINDINGS: 2 fluoroscopic images of the lower lumbar spine demonstrate intradiscal and posterior brandan and screw f ixation at L4-S1. Hardware appears grossly well-positioned and intact. Vertebral body heights are int act. CONCLUSION: 1. L4-S1 posterior fusion, as above. Electronically signed by: Kt Finn MD Board Certified Radiologist 07/27/2018 9:05 PM EST
[2018-07-28] MEDS: Insulin NovoLIN Regular Correctional Sugar Inj SQ SCH ×6 (03:24→21:03)
[2018-07-28] MEDS: Torsemide 20 MG Tablet PO SCH (08:21)
[2018-07-28] MEDS: Gabapentin 300 MG Capsule PO SCH ×4 (08:21→20:35)
[2018-07-28] MEDS: Ascorbic Acid 500 MG Tablet PO SCH ×2 (08:21→20:35)
[2018-07-28] MEDS: Senna/Docusate Sodium 8.6/50 MG Tablet PO SCH ×2 (08:22→20:35)
[2018-07-28] MEDS: Morphine Inj 30 MG/30 ML PCA.VIAL PCA PRN (08:59)
[2018-07-28] MEDS ORDERED: glipiZIDE 5 MG Tablet PO SCH (09:00)
[2018-07-28] MEDS: Sod Chloride 0.9% Inj 1,000 ML IV.SIG SCH (09:36)
--- NOTE | 2018-07-28 10:07 | P.PNCC ---
Subjective Subjective Remarks/Hospital Course: 73-year-old female with a history of lumbar spondylolisthesis who underwent elective L4-5, L5-S1 right laminectomy, interbody arthrodesis, fixation and fusion. She arrives to the PACU and extubated in stable condition. I evaluated the patient in PACU. She endorses mild back pain which is appropriate for her level of operation. She states this level of pain is tolerable. She has a SNAP ATT[employer]ER pump and is using it. She denies sore throat, headache, nausea, vomiting, chest pain, shortness of breath. Remainder review of systems is negative. 07/28/18 No events overnight, remains hemodynamically stable. Pain controlled Objective Vital Signs / I&O: Vital Signs 07/27/18 12:15 07/27/18 18:30 07/27/18 18:32 Temperature 98.2 F 97.4 F L Pulse Rate 65 80 83 Respiratory Rate 18 12 8 L Blood Pressure 153/80 H 142/68 H 154/72 H Pulse Oximetry 97 95 96 07/27/18 18:45 07/27/18 19:00 07/27/18 19:15 Temperature Pulse Rate 81 81 82 Respiratory Rate 12 13 13 Blood Pressure 149/71 H 147/65 H 147/69 H Pulse Oximetry 96 94 L 95 07/27/18 19:30 07/27/18 20:00 07/27/18 20:05 Temperature Pulse Rate 83 83 Respiratory Rate 13 12 15 Blood Pressure 144/69 H 136/65 Pulse Oximetry 96 96 07/27/18 21:00 07/27/18 22:00 07/27/18 22:15 Temperature Pulse Rate 86 91 H 93 H Respiratory Rate 14 12 14 Blood Pressure 141/64 H 139/64 138/64 Pulse Oximetry 96 90 L 07/27/18 23:00 07/27/18 23:35 07/28/18 00:00 Temperature 97.8 F 98 F Pulse Rate 92 H 90 90 Respiratory Rate 15 12 13 Blood Pressure 139/64 149/74 H 140/67 Pulse Oximetry 100 93 L 100 07/28/18 00:30 07/28/18 01:00 07/28/18 01:30 Temperature Pulse Rate 91 H 91 H 92 H Respiratory Rate 14 12 22 Blood Pressure 139/70 149/72 H 138/68 Pulse Oximetry 100 100 100 07/28/18 02:00 07/28/18 02:05 07/28/18 02:30 Temperature Pulse Rate 90 81 89 Respiratory Rate 22 17 Blood Pressure 145/70 H 140/65 Pulse Oximetry 100 07/28/18 03:00 07/28/18 03:30 07/28/18 03:57 Temperature Pulse Rate 88 87 89 Respiratory Rate 15 19 Blood Pressure 144/67 H 158/72 H Pulse Oximetry 90 L 92 L 07/28/18 04:00 07/28/18 04:30 07/28/18 05:00 Temperature 98.1 F Pulse Rate 85 86 83 Respiratory Rate 13 12 17 Blood Pressure 138/69 139/67 130/62 Pulse Oximetry 100 100 97 07/28/18 05:30 07/28/18 06:00 07/28/18 08:10 Temperature Pulse Rate 82 79 Respiratory Rate 15 16 Blood Pressure 123/60 120/65 Pulse Oximetry 97 97 98 Intake & Output 07/27/18 07/28/18 07/28/18 18:59 06:59 18:59 Intake Total 2700 / 2700 273 / 273 1000 / 1000 Output Total 650 / 650 625 / 625 Balance 2049 / 2049 -352 / -352 1000 / 1000 Weight 82.1 kg 70.1 kg Intake: IV 300 / 300 1000 / 1000 Zyvox 600 mg Premix 300 ML @ 300 / 300 600 mls/hr IV.SIG [facility] Rx#:[id number] NS Inj 1,000 ML @ 70 mls/hr IV. 1000 / 1000 SIG .[id number] [facility] Rx#:[id number] Anesthesia Amount 2400 / 2400 Other 273 / 273 Output: Estimated Blood Loss 150 / 150 Urine Amount (Catheter) 500 / 500 575 / 575 Indwelling Urethral Catheter 500 / 500 575 / 575 Wound Drainage 50 / 50 Lower Lumbar 50 / 50 Other: Weight On Admission 82.1 kg Objective Remarks: GENERAL: Elderly female, lying in bed, no acute distress, arousing from anesthesia HEENT: Normocephalic. Atraumatic. Pupils equal, round, reactive, conjugate. Mucous membranes are moist NECK: Trachea is midline. There is no JVD. CHEST: Equal chest rise. Nasal cannula oxygen. CARDIOVASCULAR: Normal rate, regular rhythm. Sinus. ABDOMEN: Soft, nontender, nondistended. No guarding. MUSCULOSKELETAL: Pulses 2+. No peripheral edema. A RADHA drain exits the lumbar back with a minimal amount of sanguinous output. There is a dressing over the lumbar spine clean dry and intact. NEUROLOGICAL: RASS -1. Arouses easily. Follows commands in all 4 extremities. Muscular skeletal strength appears to be 5/5 in all 4 extremities. Sensation grossly intact. No focal deficits. Assessment and Plan - Assessment and Plan Plan: Assessment: 73-year-old female postop day 1 status post L4-5, L5-S1 laminectomy and fusion. Admitted to ICU for close observation. s/p L4/5, L5/S1 laminectomy and fusion 07/[address] Mckoy - frequent neuro checks - monitor RADHA drain output - avoid anticoagulants TRACEY - wean o2 for goal spo2 > 90% - watch closely given iv narcotics for signs of obstruction - NIPPV if necessary. - prn nebs Diabetes - SSI - hold home oral hypoglycemics in the setting of recent operation. may restart POD 1 or 2. GERD - home ppi Hyperlipidemia - home statin Fibromyalgia - restart home gabapentin SCDs Level 2. Patient has been hemodynamically stable, comfortable on nasal cannula. Critical care medicine will sign off. Please reconsult us if needed. Thank you very much for allowing us to participate in care of this very pleasant lady.
[2018-07-28] MEDS ORDERED: Labetalol HCl Inj 20 MG/4 ML Vial IV.PUSH PRN (15:45)
--- NOTE | 2018-07-28 19:20 | P.PNNS ---
Subjective Interval history: 07/28/18 Incisional pain. No events overnight, remains hemodynamically stable. Pain controlled Physical Exam Vital signs: Vital Signs 07/27/18 19:30 07/27/18 20:00 07/27/18 20:05 Temperature Pulse Rate 83 83 Respiratory Rate 13 12 15 Blood Pressure 144/69 H 136/65 Pulse Oximetry 96 96 07/27/18 21:00 07/27/18 22:00 07/27/18 22:15 Temperature Pulse Rate 86 91 H 93 H Respiratory Rate 14 12 14 Blood Pressure 141/64 H 139/64 138/64 Pulse Oximetry 96 90 L 07/27/18 23:00 07/27/18 23:35 07/28/18 00:00 Temperature 97.8 F 98 F Pulse Rate 92 H 90 90 Respiratory Rate 15 12 13 Blood Pressure 139/64 149/74 H 140/67 Pulse Oximetry 100 93 L 100 07/28/18 00:30 07/28/18 01:00 07/28/18 01:30 Temperature Pulse Rate 91 H 91 H 92 H Respiratory Rate 14 12 22 Blood Pressure 139/70 149/72 H 138/68 Pulse Oximetry 100 100 100 07/28/18 02:00 07/28/18 02:05 07/28/18 02:30 Temperature Pulse Rate 90 81 89 Respiratory Rate 22 17 Blood Pressure 145/70 H 140/65 Pulse Oximetry 100 07/28/18 03:00 07/28/18 03:30 07/28/18 03:57 Temperature Pulse Rate 88 87 89 Respiratory Rate 15 19 Blood Pressure 144/67 H 158/72 H Pulse Oximetry 90 L 92 L 07/28/18 04:00 07/28/18 04:30 07/28/18 05:00 Temperature 98.1 F Pulse Rate 85 86 83 Respiratory Rate 13 12 17 Blood Pressure 138/69 139/67 130/62 Pulse Oximetry 100 100 97 07/28/18 05:30 07/28/18 06:00 07/28/18 07:00 Temperature Pulse Rate 82 79 85 Respiratory Rate 15 16 12 Blood Pressure 123/60 120/65 146/71 H Pulse Oximetry 97 97 100 07/28/18 08:00 07/28/18 08:10 07/28/18 09:00 Temperature 98.7 F Pulse Rate 90 78 Respiratory Rate 20 11 L Blood Pressure 158/79 H 147/71 H Pulse Oximetry 100 98 100 07/28/18 09:29 07/28/18 10:00 07/28/18 11:00 Temperature Pulse Rate 81 87 Respiratory Rate 12 8 L 19 Blood Pressure 139/67 135/65 Pulse Oximetry 98 96 07/28/18 12:00 07/28/18 13:00 07/28/18 13:52 Temperature 98.8 F Pulse Rate 82 77 79 Respiratory Rate 19 14 Blood Pressure 135/63 120/59 L Pulse Oximetry 99 95 07/28/18 14:00 07/28/18 15:00 07/28/18 16:00 Temperature 98.1 F Pulse Rate 76 79 80 Respiratory Rate 12 12 22 Blood Pressure 131/61 132/61 138/70 Pulse Oximetry 100 100 99 07/28/18 16:30 07/28/18 17:00 07/28/18 17:30 Temperature Pulse Rate 79 78 85 Respiratory Rate 16 20 18 Blood Pressure 142/70 H 143/66 H 150/71 H Pulse Oximetry 100 100 100 07/28/18 18:00 Temperature Pulse Rate 79 Respiratory Rate 18 Blood Pressure 124/58 L Pulse Oximetry 100 Intake & Output 07/28/18 07/28/18 07/29/18 06:59 18:59 06:59 Intake Total 273 / 273 1595 / 1595 Output Total 625 / 625 1070 / 1070 Balance -352 / -352 525 / 525 Weight 70.1 kg Intake: IV 1595 / 1595 NS Inj 1,000 ML @ 70 mls/hr IV. 1595 / 1595 SIG .[id number] [facility] Rx#:[id number] Other 273 / 273 Output: Urine Amount (Catheter) 575 / 575 1000 / 1000 Indwelling Urethral Catheter 575 / 575 1000 / 1000 Wound Drainage 50 / 50 70 / 70 Lower Lumbar 50 / 50 70 / 70 Other: # Bowel Movements 0 Narrative: GENERAL: Elderly female, lying in bed, no acute distress, arousing from anesthesia HEENT: Normocephalic. Atraumatic. Pupils equal, round, reactive, conjugate. Mucous membranes are moist NECK: Trachea is midline. There is no JVD. CHEST: Equal chest rise. Nasal cannula oxygen. CARDIOVASCULAR: Normal rate, regular rhythm. Sinus. ABDOMEN: Soft, nontender, nondistended. No guarding. MUSCULOSKELETAL: Pulses 2+. No peripheral edema. A RADHA drain exits the lumbar back with a minimal amount of sanguinous output. There is a dressing over the lumbar spine clean dry and intact. NEUROLOGICAL: RASS -1. Arouses easily. Follows commands in all 4 extremities. Muscular skeletal strength appears to be 5/5 in all 4 extremities. Sensation grossly intact. No focal deficits. - Urinary Catheter Management Indwelling Urethral Catheter Cath placed during this visit: yes Reason for continuing: Hourly intake/output Insertion date: 07/27/18 Insertion time: 13:35 Straight Cath placed during this visit: no Assessment and Plan - Assessment (1) Degenerative spondylolisthesis Code(s): M43.10 - Spondylolisthesis, site unspecified Status: Acute (2) Degeneration of lumbar intervertebral disc Code(s): M51.36 - Other intervertebral disc degeneration, lumbar region Status : Acute (3) Diabetic peripheral neuropathy Code(s): E11.42 - Type 2 diabetes mellitus with diabetic polyneuropathy Status : Acute - Plan s/p L4/5, L5/S1 laminectomy and fusion Very painful. She does not do well withy narcotics Pulmonary - wean o2 for goal spo2 > 90% - watch closely given iv narcotics for signs of obstruction - NIPPV if necessary. - prn nebs Diabetes - SSI Neuro: neuro checks in a serial fashion. GERD - home ppi Hyperlipidemia - home statin Fibromyalgia - restart home gabapentin Daily PT and OT Renal: Continue to monitor closely urine output, BUN and creatinine Endocrine: Continue to Monitor serial Acu checks and SSI as needed in detail ID continue to monitor for signs of infection Continue Protonix for stress ulcer prophylaxis Continue Marlon childs and SCD's for DVT prophylaxis
[2018-07-29] MEDS: Sod Chloride 0.9% Inj 1,000 ML IV.SIG SCH ×2 (00:07→15:43)
[2018-07-29] MEDS: Morphine Inj 30 MG/30 ML PCA.VIAL PCA PRN (03:11)
[2018-07-29] MEDS: Insulin NovoLIN Regular Correctional Sugar Inj SQ SCH ×5 (05:25→20:57)
[2018-07-29] MEDS: Gabapentin 300 MG Capsule PO SCH ×4 (08:40→20:53)
[2018-07-29] MEDS: Senna/Docusate Sodium 8.6/50 MG Tablet PO SCH ×2 (08:40→20:53)
[2018-07-29] MEDS: Ascorbic Acid 500 MG Tablet PO SCH ×2 (08:41→20:53)
[2018-07-29] MEDS: Torsemide 20 MG Tablet PO SCH (08:41)
--- NOTE | 2018-07-29 14:23 | P.PNIM ---
Subjective Interval history: Patient has some opioid encephalopathy today. Multiple allergies to pain medications limits her options. Pain not yet fully controlled. Physical Exam Vital signs: Vital Signs 07/28/18 15:00 07/28/18 16:00 07/28/18 16:30 Temperature 98.1 F Pulse Rate 79 80 79 Respiratory Rate 12 22 16 Blood Pressure 132/61 138/70 142/70 H Pulse Oximetry 100 99 100 07/28/18 17:00 07/28/18 17:30 07/28/18 18:00 Temperature Pulse Rate 78 85 79 Respiratory Rate 20 18 18 Blood Pressure 143/66 H 150/71 H 124/58 L Pulse Oximetry 100 100 100 07/28/18 18:30 07/28/18 19:00 07/28/18 19:15 Temperature Pulse Rate 79 83 85 Respiratory Rate 19 26 H Blood Pressure 130/62 114/96 H Pulse Oximetry 100 100 07/28/18 19:30 07/28/18 19:42 07/28/18 20:00 Temperature 98.1 F Pulse Rate 80 76 Respiratory Rate 15 13 Blood Pressure 131/63 118/58 L Pulse Oximetry 100 100 100 07/28/18 20:30 07/28/18 21:00 07/28/18 21:07 Temperature Pulse Rate 79 79 77 Respiratory Rate 24 17 24 Blood Pressure 122/57 L 140/66 Pulse Oximetry 100 100 100 07/28/18 22:00 07/28/18 22:07 07/28/18 22:10 Temperature Pulse Rate 75 76 82 Respiratory Rate 18 13 Blood Pressure 124/58 L Pulse Oximetry 100 100 07/28/18 23:00 07/28/18 23:07 07/29/18 00:00 Temperature 98.5 F Pulse Rate 77 78 84 Respiratory Rate 12 13 23 Blood Pressure 123/60 139/65 Pulse Oximetry 98 98 100 07/29/18 00:07 07/29/18 00:27 07/29/18 01:00 Temperature Pulse Rate 84 81 83 Respiratory Rate 16 15 Blood Pressure 139/65 Pulse Oximetry 100 100 07/29/18 01:07 07/29/18 01:50 07/29/18 02:00 Temperature Pulse Rate 84 82 89 Respiratory Rate 15 16 Blood Pressure 140/64 Pulse Oximetry 100 99 07/29/18 02:07 07/29/18 03:00 07/29/18 03:07 Temperature Pulse Rate 86 86 88 Respiratory Rate 14 14 17 Blood Pressure 136/65 138/70 Pulse Oximetry 99 98 99 07/29/18 04:00 07/29/18 04:05 07/29/18 04:07 Temperature 98.4 F Pulse Rate 85 83 87 Respiratory Rate 19 15 Blood Pressure 136/63 136/63 Pulse Oximetry 98 99 07/29/18 05:00 07/29/18 05:07 07/29/18 05:28 Temperature Pulse Rate 85 84 82 Respiratory Rate 12 12 Blood Pressure 120/58 L Pulse Oximetry 96 97 07/29/18 06:00 07/29/18 06:07 07/29/18 07:00 Temperature Pulse Rate 84 85 89 Respiratory Rate 17 23 15 Blood Pressure 124/57 L Pulse Oximetry 95 93 L 98 07/29/18 07:07 07/29/18 08:00 07/29/18 08:07 Temperature 100.2 F H Pulse Rate 93 H 89 92 H Respiratory Rate 16 15 10 L Blood Pressure 125/60 126/58 L Pulse Oximetry 97 97 96 07/29/18 09:00 07/29/18 09:07 Temperature Pulse Rate 89 88 Respiratory Rate 20 19 Blood Pressure 133/89 Pulse Oximetry 98 97 Intake & Output 07/28/18 07/29/18 07/29/18 18:59 06:59 18:59 Intake Total 1595 / 1595 405 / 405 Output Total 1070 / 1070 1330 / 1330 Balance 525 / 525 -925 / -925 Weight 71.2 kg Intake: IV 1595 / 1595 405 / 405 NS Inj 1,000 ML @ 70 mls/hr IV. 1595 / 1595 405 / 405 SIG .[id number] [facility] Rx#:[id number] Output: Urine Amount (Catheter) 1000 / 1000 1300 / 1300 Indwelling Urethral Catheter 1000 / 1000 1300 / 1300 Wound Drainage 70 / 70 30 / 30 Lower Lumbar 70 / 70 30 / 30 Other: # Bowel Movements 0 Narrative: GENERAL: NAD, A&Ox3 HEAD: Normocephalic. NECK: Supple, trachea midline. No lymphadenopathy. EYES: No scleral icterus. No injection or drainage. CARDIOVASCULAR: Regular rate and rhythm without murmurs, gallops, or rubs. RESPIRATORY: Breath sounds equal bilaterally. No accessory muscle use. GASTROINTESTINAL: Abdomen soft, non-tender, nondistended. MUSCULOSKELETAL: No cyanosis, or edema. Good range of motion due to recent lower back surgery. SKIN: Warm and dry. NEURO: No focal neurological deficits. Urinary Catheter Management Indwelling Urethral Catheter: Cath placed during this visit: yes Reason for continuing: Hourly intake/output Insertion date: 07/27/18 Insertion time: 13:35 Assessment and Plan Plan 73-year-old female postop day 1 status post L4-5, L5-S1 laminectomy and fusion. Admitted to ICU for close observation. s/p L4/5, L5/S1 laminectomy and fusion Completed 07/[address] Mckoy Continue as needed pain treatments Twice daily naproxen started to augment pain treatment and minimize narcotic need Continue neurochecks Continue RADHA drain Neurosurgery following Obstructive sleep apnea Follow on pulse ox Minimize narcotics when possible Diabetes mellitus type 2 Follow blood sugars Insulin sliding scale Diabetic diet GERD Continue PPI Hyperlipidemia Continue statin Fibromyalgia Continue gabapentin DVT prophylaxis SCDs Progress Note: Quality VTE Deep Vein Thrombosis/Pulmonary Embolism Present on Admission: No
[2018-07-29] MEDS ORDERED: Naproxen 250 MG Tablet PO ONE (15:00)
[2018-07-29] MEDS: Morphine Sulfate Inj 2 MG/ML Vial IV.PUSH PRN (15:42)
--- NOTE | 2018-07-29 16:17 | P.PNNS ---
Subjective Interval history: Pt awake and alert. Sitting up in chair. 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 She denies any radiculopathy in LEs but complains of incisional and low back pain. She states she walked short distance. <Alejandro Cortes - Last Filed: 07/29/18 16:12> Physical Exam Vital signs: Vital Signs 07/28/18 16:30 07/28/18 17:00 07/28/18 17:30 Temperature Pulse Rate 79 78 85 Respiratory Rate 16 20 18 Blood Pressure 142/70 H 143/66 H 150/71 H Pulse Oximetry 100 100 100 07/28/18 18:00 07/28/18 18:30 07/28/18 19:00 Temperature Pulse Rate 79 79 83 Respiratory Rate 18 19 26 H Blood Pressure 124/58 L 130/62 114/96 H Pulse Oximetry 100 100 100 07/28/18 19:15 07/28/18 19:30 07/28/18 19:42 Temperature Pulse Rate 85 80 Respiratory Rate 15 Blood Pressure 131/63 Pulse Oximetry 100 100 07/28/18 20:00 07/28/18 20:30 07/28/18 21:00 Temperature 98.1 F Pulse Rate 76 79 79 Respiratory Rate 13 24 17 Blood Pressure 118/58 L 122/57 L Pulse Oximetry 100 100 100 07/28/18 21:07 07/28/18 22:00 07/28/18 22:07 Temperature Pulse Rate 77 75 76 Respiratory Rate 24 18 13 Blood Pressure 140/66 124/58 L Pulse Oximetry 100 100 100 07/28/18 22:10 07/28/18 23:00 07/28/18 23:07 Temperature Pulse Rate 82 77 78 Respiratory Rate 12 13 Blood Pressure 123/60 Pulse Oximetry 98 98 07/29/18 00:00 07/29/18 00:07 07/29/18 00:27 Temperature 98.5 F Pulse Rate 84 84 81 Respiratory Rate 23 16 Blood Pressure 139/65 139/65 Pulse Oximetry 100 100 07/29/18 01:00 07/29/18 01:07 07/29/18 01:50 Temperature Pulse Rate 83 84 82 Respiratory Rate 15 15 Blood Pressure 140/64 Pulse Oximetry 100 100 07/29/18 02:00 07/29/18 02:07 07/29/18 03:00 Temperature Pulse Rate 89 86 86 Respiratory Rate 16 14 14 Blood Pressure 136/65 Pulse Oximetry 99 99 98 07/29/18 03:07 07/29/18 04:00 07/29/18 04:05 Temperature 98.4 F Pulse Rate 88 85 83 Respiratory Rate 17 19 Blood Pressure 138/70 136/63 Pulse Oximetry 99 98 07/29/18 04:07 07/29/18 05:00 07/29/18 05:07 Temperature Pulse Rate 87 85 84 Respiratory Rate 15 12 12 Blood Pressure 136/63 120/58 L Pulse Oximetry 99 96 97 07/29/18 05:28 07/29/18 06:00 07/29/18 06:07 Temperature Pulse Rate 82 84 85 Respiratory Rate 17 23 Blood Pressure 124/57 L Pulse Oximetry 95 93 L 07/29/18 07:00 07/29/18 07:07 07/29/18 08:00 Temperature 100.2 F H Pulse Rate 89 93 H 89 Respiratory Rate 15 16 15 Blood Pressure 125/60 Pulse Oximetry 98 97 97 07/29/18 08:07 07/29/18 09:00 07/29/18 09:07 Temperature Pulse Rate 92 H 89 88 Respiratory Rate 10 L 20 19 Blood Pressure 126/58 L 133/89 Pulse Oximetry 96 98 97 07/29/18 10:00 07/29/18 10:07 07/29/18 11:00 Temperature Pulse Rate 85 86 85 Respiratory Rate 14 13 13 Blood Pressure 125/61 Pulse Oximetry 96 95 90 L 07/29/18 11:07 07/29/18 12:00 07/29/18 12:07 Temperature 98.6 F Pulse Rate 83 82 86 Respiratory Rate 12 14 21 Blood Pressure 118/57 L 139/64 Pulse Oximetry 96 97 97 07/29/18 13:00 07/29/18 13:07 07/29/18 14:00 Temperature Pulse Rate 90 89 86 Respiratory Rate 18 18 18 Blood Pressure 154/70 H Pulse Oximetry 98 97 96 07/29/18 14:07 07/29/18 15:04 07/29/18 15:07 Temperature Pulse Rate 84 85 83 Respiratory Rate 17 22 Blood Pressure 150/70 H 156/68 H 152/67 H Pulse Oximetry 97 97 Intake & Output 07/28/18 07/29/18 07/29/18 18:59 06:59 18:59 Intake Total 1595 / 1595 405 / 405 405 / 405 Output Total 1070 / 1070 1330 / 1330 Balance 525 / 525 -925 / -925 405 / 405 Weight 71.2 kg Intake: IV 1595 / 1595 405 / 405 405 / 405 NS Inj 1,000 ML @ 70 mls/hr IV. 1595 / 1595 405 / 405 405 / 405 SIG .[id number] [facility] Rx#:[id number] Output: Urine Amount (Catheter) 1000 / 1000 1300 / 1300 Indwelling Urethral Catheter 1000 / 1000 1300 / 1300 Wound Drainage 70 / 70 30 / 30 Lower Lumbar 70 / 70 30 / 30 Other: # Bowel Movements 0 - Constitutional no acute distress, cooperative - Routine HEENT Exam Head: Present: normocephalic Eye: Present: PERRL. Absent: conjunctival icterus ENT: Present: oropharynx clear - Routine Respiratory Exam Present: CTA bilaterally. Absent: respiratory distress, rhonchi, wheezes - Routine Cardiovascular Exam Present: RRR, S1, S2. Absent: murmur - Routine Abdominal Exam Present: soft, normoactive bowel sounds. Absent: distended - Routine Skin Exam Absent: cyanosis, erythema - Routine Neurological Exam Present: alert, oriented X3, moving all extremities. Absent: sensory deficit, motor deficit - Routine Psychiatric Exam Present: normal affect - Urinary Catheter Management Indwelling Urethral Catheter Cath placed during this visit: yes Reason for continuing: Hourly intake/output Insertion date: 07/27/18 Insertion time: 13:35 <Alejandro Cortes - Last Filed: 07/29/18 16:12> Vital signs: Vital Signs 07/31/18 20:00 07/31/18 23:40 08/01/18 00:00 Temperature 98.0 F 98.1 F Pulse Rate 86 84 Respiratory Rate 18 19 16 Blood Pressure 155/70 H 137/63 Pulse Oximetry 95 99 08/01/18 04:10 08/01/18 05:34 08/01/18 07:07 Temperature 98.3 F 97.9 F Pulse Rate 83 82 Respiratory Rate 20 16 16 Blood Pressure 131/66 136/64 Pulse Oximetry 95 95 08/01/18 11:30 08/01/18 12:00 08/01/18 16:00 Temperature 98.1 F Pulse Rate 83 Respiratory Rate 16 16 16 Blood Pressure 134/64 Pulse Oximetry 96 08/01/18 16:50 Temperature 98.1 F Pulse Rate 83 Respiratory Rate 18 Blood Pressure 146/67 H Pulse Oximetry 92 L Intake & Output 07/31/18 08/01/18 08/01/18 18:59 06:59 18:59 Intake Total 1440 / 1440 Output Total 500 / 500 Balance 940 / 940 Weight 88.4 kg Intake: Oral 1440 / 1440 Output: Urine 500 / 500 Other: # Voids 1 3 - Urinary Catheter Management Indwelling Urethral Catheter Cath placed during this visit: no <Azar Mckoy - Last Filed: 08/01/18 18:34> Assessment and Plan - Assessment (1) Degenerative spondylolisthesis Code(s): M43.10 - Spondylolisthesis, site unspecified Status: Acute (2) Degeneration of lumbar intervertebral disc Code(s): M51.36 - Other intervertebral disc degeneration, lumbar region Status : Acute (3) Diabetic peripheral neuropathy Code(s): E11.42 - Type 2 diabetes mellitus with diabetic polyneuropathy Status : Acute - Plan SERVICE ATTENDANT CAFETERIA was discontinued this morning. Continue with pain control Continue with PT <Alejandro Cortes - Last Filed: 07/29/18 16:12> - Assessment (1) Degenerative spondylolisthesis Code(s): M43.10 - Spondylolisthesis, site unspecified Status: Acute (2) Degeneration of lumbar intervertebral disc Code(s): M51.36 - Other intervertebral disc degeneration, lumbar region Status : Acute (3) Diabetic peripheral neuropathy Code(s): E11.42 - Type 2 diabetes mellitus with diabetic polyneuropathy Status : Acute - Plan The exam, history, and the medical decision-making described in the above note were completed with the assistance of the mid-level provider. I reviewed and agree with the findings presented. I attest that I had a [id number] encounter with the patient on the same day, and personally performed and documented my assessment and findings in the medical record. <Azar Mckoy - Last Filed: 08/01/18 18:34>
[2018-07-29] MEDS ORDERED: Naproxen 250 MG Tablet PO SCH (21:00)
[2018-07-30] MEDS: Insulin NovoLIN Regular Correctional Sugar Inj SQ SCH ×5 (03:47→21:03)
[2018-07-30] MEDS: Morphine Sulfate Inj 2 MG/ML Vial IV.PUSH PRN (04:04)
[2018-07-30 07:59] LABS: Baso % (Auto) 0.3 % (0.0-2.0); Eos # (Auto) 0.1 th/mm3 (0.0-0.4); Hematocrit 28.5 % (35.0-46.0); Lymph # (Auto) 1.4 th/mm3 (1.0-4.8); Lymph % (Auto) 11.1 % (9.0-44.0); Mean Corpuscular HGB Conc 31.8 % (32.0-36.0); Mean Corpuscular Hemoglobin 26.3 pg (27.0-34.0); Mean Corpuscular Volume 82.7 fL (80.0-100.0); Mean Platelet Volume 8.8 fL (7.0-11.0); Mono # (Auto) 0.9 th/mm3 (0.0-0.9); Mono % (Auto) 7.3 % (0.0-8.0); Neut # (Auto) 10.1 th/mm3 (1.8-7.7); Neut % (Auto) 80.3 % (16.0-70.0); Platelet Count 249 th/mm3 (150-450); Red Blood Count 3.44 mil/mm3 (4.00-5.30); Red Cell Distribution Width 16.9 % (11.6-17.2); White Blood Count 12.6 th/mm3 (4.0-11.0)
[2018-07-30 08:27] LABS: Albumin 2.5 g/dL (3.4-5.0); Anion Gap 5 meq/L (5-15); Aspartate Aminotransferase 20 U/L (15-37); Blood Urea Nitrogen 12 mg/dL (7-18); Calcium 8.7 mg/dL (8.5-10.1); Carbon Dioxide 28.1 meq/L (21.0-32.0); Chloride 108 meq/L (98-107); Glomerular Filtration Rate 58 mL/min (>89); Glucose,Random 171 mg/dL (74-106); Potassium 3.9 meq/L (3.5-5.1); Sodium 141 meq/L (136-145)
[2018-07-30 08:28] LABS: Alanine Aminotransferase 20 U/L (10-53)
[2018-07-30 08:31] LABS: Alkaline Phosphatase 83 U/L (45-117); Total Protein 5.9 g/dL (6.4-8.2)
[2018-07-30] MEDS: Senna/Docusate Sodium 8.6/50 MG Tablet PO SCH ×2 (09:15→20:52)
[2018-07-30] MEDS: Torsemide 20 MG Tablet PO SCH (09:15)
[2018-07-30] MEDS: Ascorbic Acid 500 MG Tablet PO SCH ×2 (09:16→20:52)
[2018-07-30] MEDS: Gabapentin 300 MG Capsule PO SCH ×4 (09:16→20:52)
[2018-07-30] MEDS ORDERED: Morphine Sulfate 15 MG IR Tablet PO PRN (10:46)
--- NOTE | 2018-07-30 10:49 | P.PNIM ---
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 However, currently she says her pain not controlled. No other complaints today. She is able to ambulate and has use the bathroom this morning. Physical Exam Vital signs: Vital Signs 07/29/18 11:00 07/29/18 11:07 07/29/18 12:00 Temperature 98.6 F Pulse Rate 85 83 82 Respiratory Rate 13 12 14 Blood Pressure 118/57 L Pulse Oximetry 90 L 96 97 07/29/18 12:07 07/29/18 13:00 07/29/18 13:07 Temperature Pulse Rate 86 90 89 Respiratory Rate 21 18 18 Blood Pressure 139/64 154/70 H Pulse Oximetry 97 98 97 07/29/18 14:00 07/29/18 14:07 07/29/18 15:04 Temperature Pulse Rate 86 84 85 Respiratory Rate 18 17 Blood Pressure 150/70 H 156/68 H Pulse Oximetry 96 97 07/29/18 15:07 07/29/18 16:00 07/29/18 16:07 Temperature 98.8 F Pulse Rate 83 87 84 Respiratory Rate 22 20 21 Blood Pressure 152/67 H 156/77 H Pulse Oximetry 97 90 L 95 07/29/18 17:00 07/29/18 17:07 07/29/18 18:00 Temperature Pulse Rate 81 83 79 Respiratory Rate 18 17 Blood Pressure 149/70 H Pulse Oximetry 93 L 91 L 07/29/18 20:37 07/30/18 00:00 07/30/18 00:59 Temperature 98.8 F 98.5 F Pulse Rate 84 84 Respiratory Rate 18 18 18 Blood Pressure 160/72 H 154/72 H Pulse Oximetry 94 L 95 07/30/18 03:40 07/30/18 07:32 Temperature 98.7 F 97.9 F Pulse Rate 76 77 Respiratory Rate 18 18 Blood Pressure 135/64 114/73 Pulse Oximetry 98 95 Intake & Output 07/29/18 07/30/18 07/30/18 18:59 06:59 18:59 Intake Total 1055 / 1055 240 / 240 Output Total 975 / 975 710 / 710 Balance 80 / 80 -470 / -470 Weight 89.5 kg Intake: IV 405 / 405 NS Inj 1,000 ML @ 70 mls/hr IV. 405 / 405 SIG .[id number] REPLACED BY [facility] Rx#:[id number] Oral 650 / 650 240 / 240 Output: Urine Amount (Catheter) 950 / 950 700 / 700 Indwelling Urethral Catheter 950 / 950 Straight 700 / 700 Wound Drainage Lower Lumbar Other: Date of Last Bowel Movement 07/26/17 Narrative: GENERAL: NAD, A&Ox3 HEAD: Normocephalic. NECK: Supple, trachea midline. No lymphadenopathy. EYES: No scleral icterus. No injection or drainage. CARDIOVASCULAR: Regular rate and rhythm without murmurs, gallops, or rubs. RESPIRATORY: Breath sounds equal bilaterally. No accessory muscle use. GASTROINTESTINAL: Abdomen soft, non-tender, nondistended. MUSCULOSKELETAL: No cyanosis, or edema. Good range of motion due to recent lower back surgery. SKIN: Warm and dry. NEURO: No focal neurological deficits. Urinary Catheter Management Indwelling Urethral Catheter: Cath placed during this visit: yes, but has since been removed by the nurse Reason for continuing: Decision to DC catheter Insertion date: 07/27/18 Insertion time: 13:35 Removal date: 07/29/18 Removal time: 17:30 Straight: Cath placed during this visit: no Results Labs CBC & Chem 7: 07/30/18 07:13 07/30/18 07:13 Assessment and Plan Plan 73-year-old female postop day 1 status post L4-5, L5-S1 laminectomy and fusion. Admitted to ICU for close observation. Attempt oral pain control with sliding scale of p.o. morphine. Mild to moderate pain will be 7.5 mg and severe pain will be 15 mg. s/p L4/5, L5/S1 laminectomy and fusion Completed 07/[address] Mckoy Continue as needed pain treatments Twice daily naproxen started to augment pain treatment and minimize narcotic need Continue neurochecks Continue RADHA drain Neurosurgery following Obstructive sleep apnea Follow on pulse ox Minimize narcotics when possible Diabetes mellitus type 2 Follow blood sugars Insulin sliding scale Diabetic diet GERD Continue PPI Hyperlipidemia Continue statin Fibromyalgia Continue gabapentin DVT prophylaxis SCDs Progress Note: Quality VTE Deep Vein Thrombosis/Pulmonary Embolism Present on Admission: No
[2018-07-30] MEDS: Morphine Sulfate 15 MG IR Tablet PO PRN ×3 (13:30→23:05)
--- NOTE | 2018-07-30 14:22 | P.DCO ---
Physical Therapy Order: Evaluate and treat, Improve ambulation and Strength and gait training Occupational Therapy Order: Evaluate and treat and Improve ADL Home Health Nursing Order: Medical education, Wound care and dressing changes and Nursing assessment with vital signs Case Management Consult Case Management Consult-Home Health: Yes I have seen patient Lenore Snider on 07/30/18. My clinical findings support the need for the requested home health care services because: Limited mobility due to disease progression, Deconditioned with increased weakness and Limited ability to care for self I certify that my clinical findings support that this patient is homebound because: Unsteady gait/balance, Unsafe to leave home unassisted and Unable to use public transportation
--- NOTE | 2018-07-30 18:50 | P.PNNS ---
Subjective Interval history: 07/30: Sitting up in chair. 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 She denies any radiculopathy in LEs but complains of incisional and low back pain. She states she walked short distance. Physical Exam Vital signs: Vital Signs 07/29/18 20:37 07/30/18 00:00 07/30/18 00:59 Temperature 98.8 F 98.5 F Pulse Rate 84 84 Respiratory Rate 18 18 Blood Pressure 160/72 H 154/72 H Pulse Oximetry 94 L 95 07/30/18 03:40 07/30/18 07:32 07/30/18 11:38 Temperature 98.7 F 97.9 F 98 F Pulse Rate 76 77 82 Respiratory Rate Blood Pressure 135/64 114/73 149/64 H Pulse Oximetry 98 95 94 L 07/30/18 16:00 Temperature 98.3 F Pulse Rate 84 Respiratory Rate 18 Blood Pressure 138/63 Pulse Oximetry 96 Intake & Output 07/29/18 07/30/18 07/30/18 18:59 06:59 18:59 Intake Total 1055 / 1055 240 / 240 Output Total 975 / 975 710 / 710 Balance 80 / 80 -470 / -470 Weight 89.5 kg Intake: IV 405 / 405 NS Inj 1,000 ML @ 70 mls/hr IV. 405 / 405 SIG .[id number] [facility] Rx#:[id number] Oral 650 / 650 240 / 240 Output: Urine Amount (Catheter) 950 / 950 700 / 700 Indwelling Urethral Catheter 950 / 950 Straight 700 / 700 Wound Drainage Lower Lumbar Other: # Voids 5 Date of Last Bowel Movement 07/26/17 Narrative: GENERAL: Elderly female, lying in bed, no acute distress, arousing from anesthesia HEENT: Normocephalic. Atraumatic. Pupils equal, round, reactive, conjugate. Mucous membranes are moist NECK: Trachea is midline. There is no JVD. CHEST: Equal chest rise. Nasal cannula oxygen. CARDIOVASCULAR: Normal rate, regular rhythm. Sinus. ABDOMEN: Soft, nontender, nondistended. No guarding. MUSCULOSKELETAL: Pulses 2+. No peripheral edema. A RADHA drain exits the lumbar back with a minimal amount of sanguinous output. There is a dressing over the lumbar spine clean dry and intact. NEUROLOGICAL: RASS -1. Arouses easily. Follows commands in all 4 extremities. Muscular skeletal strength appears to be 5/5 in all 4 extremities. Sensation grossly intact. No focal deficits. - Urinary Catheter Management Indwelling Urethral Catheter Cath placed during this visit: yes, but has since been removed by the nurse Reason for continuing: Decision to DC catheter Insertion date: 07/27/18 Insertion time: 13:35 Removal date: 07/29/18 Removal time: 17:30 Straight Cath placed during this visit: no Assessment and Plan - Assessment (1) Degenerative spondylolisthesis Code(s): M43.10 - Spondylolisthesis, site unspecified Status: Acute (2) Degeneration of lumbar intervertebral disc Code(s): M51.36 - Other intervertebral disc degeneration, lumbar region Status : Acute (3) Diabetic peripheral neuropathy Code(s): E11.42 - Type 2 diabetes mellitus with diabetic polyneuropathy Status : Acute - Plan pod#2 Doing very well Continue with pain control Continue with daily PT Ambulation DVT prophylaxis
[2018-07-31] MEDS: Morphine Sulfate 15 MG IR Tablet PO PRN ×4 (03:24→21:16)
[2018-07-31] MEDS: Insulin NovoLIN Regular Correctional Sugar Inj SQ SCH ×5 (03:30→21:14)
[2018-07-31] MEDS: Senna/Docusate Sodium 8.6/50 MG Tablet PO SCH ×2 (08:00→21:13)
[2018-07-31] MEDS: Ascorbic Acid 500 MG Tablet PO SCH ×2 (08:01→21:13)
[2018-07-31] MEDS: Gabapentin 300 MG Capsule PO SCH ×4 (08:01→21:13)
[2018-07-31] MEDS: Torsemide 20 MG Tablet PO SCH (08:01)
[2018-07-31 10:35] LABS: Bacteria,Urine Many /hpf; Bilirubin,Urine Negative (Negative); Calcium Oxalate Crystals,Urine Occasional /hpf; Clarity,Urine Cloudy (Clear); Color,Urine Yellow (Yellw/Straw); Glucose,Urine (UA) Negative (Negative); Leukocyte Esterase,Urine Large (Negative); Mucus,Urine Few /lpf (Occasional); Nitrite,Urine Positive (Negative); Specific Gravity,Urine 1.014 (1.002-1.035); Squamous Epithelial Cell,Urine <1 /hpf (0-5)
--- NOTE | 2018-07-31 10:51 | P.PNIM ---
Subjective Interval history: Pain is better controlled with 7.5 mg morphine treatments. Physical capacity is improving. No new complaints today. Physical Exam Vital signs: Vital Signs 07/30/18 11:38 07/30/18 16:00 07/30/18 19:45 Temperature 98 F 98.3 F 98.3 F Pulse Rate 82 84 86 Respiratory Rate 18 18 17 Blood Pressure 149/64 H 138/63 127/60 Pulse Oximetry 94 L 96 91 L 07/30/18 23:25 07/31/18 04:00 07/31/18 07:35 Temperature 97.8 F 97.9 F 97.8 F Pulse Rate 83 74 86 Respiratory Rate 18 19 18 Blood Pressure 131/62 118/73 110/58 L Pulse Oximetry 97 98 95 Intake & Output 07/30/18 07/31/18 07/31/18 18:59 06:59 18:59 Intake Total 240 / 240 Output Total 25 / 25 300 / 300 Balance -25 / -25 -60 / -60 Weight 88.2 kg Intake: Oral 240 / 240 Output: Urine 300 / 300 Wound Drainage 25 / 25 Lower Lumbar 25 / 25 Other: # Voids 5 3 Narrative: GENERAL: NAD, A&Ox3 HEAD: Normocephalic. NECK: Supple, trachea midline. No lymphadenopathy. EYES: No scleral icterus. No injection or drainage. CARDIOVASCULAR: Regular rate and rhythm without murmurs, gallops, or rubs. RESPIRATORY: Breath sounds equal bilaterally. No accessory muscle use. GASTROINTESTINAL: Abdomen soft, non-tender, nondistended. MUSCULOSKELETAL: No cyanosis, or edema. Good range of motion due to recent lower back surgery. SKIN: Warm and dry. NEURO: No focal neurological deficits. Urinary Catheter Management Indwelling Urethral Catheter: Cath placed during this visit: yes, but has since been removed by the nurse Reason for continuing: Decision to DC catheter Insertion date: 07/27/18 Insertion time: 13:35 Removal date: 07/29/18 Removal time: 17:30 Straight: Cath placed during this visit: no Results Labs CBC & Chem 7: 07/30/18 07:13 07/30/18 07:13 Assessment and Plan Plan 73-year-old female postop day 1 status post L4-5, L5-S1 laminectomy and fusion. Admitted to ICU for close observation. No delirium with oral morphine thus far. Continue to monitor. Continue physical therapy. SNF versus home with home health PT at discharge. s/p L4/5, L5/S1 laminectomy and fusion Completed 07/[address] Mckoy Continue as needed pain treatments Twice daily naproxen started to augment pain treatment and minimize narcotic need Continue neurochecks Continue RADHA drain Neurosurgery following Obstructive sleep apnea Follow on pulse ox Minimize narcotics when possible Diabetes mellitus type 2 Follow blood sugars Insulin sliding scale Diabetic diet GERD Continue PPI Hyperlipidemia Continue statin Fibromyalgia Continue gabapentin DVT prophylaxis SCDs Progress Note: Quality VTE Deep Vein Thrombosis/Pulmonary Embolism Present on Admission: No
--- NOTE | 2018-07-31 14:08 | P.DS ---
Date of admission: 07/27/18 11:33 Primary care physician: Jose Armando Bailey MD Attending physician on discharge: Azar Mckoy Brief History from admission: Pt presented to our office for an evaluation of low back pain radiating into the lower extremities right more than left. She states the pain radiates into the posterior aspect but not past the knee usually, sometimes it goes into the foot. She has numbness in the heel. She states her worst pain is in the back. She has pain in bilateral buttocks. She states she has a left foot drop but ambulates without any walker, cane, or AFO brace. She denies any bowel or bladder incontinence but has urgency of urine. She had physical therapy which didn't help. She has been to her [facility] who did trigger point injections which didn't help. She has not had any pain management recently but states she has had it in the past. DS: Diagnosis - Discharge Diagnosis (1) Degenerative spondylolisthesis Status: Acute (2) Degeneration of lumbar intervertebral disc Status: Acute (3) Diabetic peripheral neuropathy Status: Acute DS: Medications - Discharge Medications Prescriptions: cyclobenzaprine 10 mg PO Q8H PRN #30 tab PRN Reason: Muscle Spasm DS: Summary Hospital Course: Pt underwent a L4-L5, L5-S1 right laminectomy, interbody arthrodhesis using PEEK cage and autologous bone graft, L4-L5 instrumental fixation using transpedicular screws and rods, L4-L5 posterolateral fusion using autologous bone graft and demineralized bone matrix. Microsurgical dissection by Dr. Mckoy on 07/27/18. Postoperatively she was admitted to the surgical intensive care unit for close hemodynamic and neurologic monitoring. Pressure Welder was consulted for evaluation and management of her sleep apnea, diabetes, and multiple allergies to medications. PT was consulted and her activity status was increased. She was transferred to the medical surgical floor. Her pain was controlled and she was discharged home in stable condition. - Time Spent with Patient Total time spent providing and/or coordinating discharge services: Less than 30 minutes - Quality: VTE Deep Vein Thrombosis/Pulmonary Embolism Present on Admission: No Exam Vital signs: Vital Signs 07/30/18 16:00 07/30/18 19:45 07/30/18 23:25 Temperature 98.3 F 98.3 F 97.8 F Pulse Rate 84 86 83 Respiratory Rate 18 17 18 Blood Pressure 138/63 127/60 131/62 Pulse Oximetry 96 91 L 97 07/31/18 04:00 07/31/18 07:35 07/31/18 11:54 Temperature 97.9 F 97.8 F 98 F Pulse Rate 74 86 74 Respiratory Rate 19 18 18 Blood Pressure 118/73 110/58 L 124/63 Pulse Oximetry 98 95 93 L Intake & Output 07/30/18 07/31/18 07/31/18 18:59 06:59 18:59 Intake Total 480 / 480 Output Total 500 / 500 Balance -25 / -25 - / - Weight 88.2 kg Intake: Oral 480 / 480 Output: Urine 500 / 500 Wound Drainage Lower Lumbar Other: # Voids 5 3 Results Procedures completed during hospitalization: L4-L5, L5-S1 right laminectomy, interbody arthrodhesis using PEEK cage and autologous bone graft, L4-L5 instrumental fixation using transpedicular screws and rods, L4-L5 posterolateral fusion using autologous bone graft and demineralized bone matrix. Microsurgical dissection on 07/27/[address] Mckoy. Labs on day of discharge: Labs from last 24 hours 07/31/18 07/31/18 07/31/18 12:09 08:45 07:17 POC Glucose 158 H 194 H Urine Color Yellow Urine Clarity Cloudy H Urine pH 6.0 Ur Specific [place] 1.014 Urine Protein Negative Urine Glucose (UA) Negative Urine Ketones Negative Urine Occult Blood Moderate H Urine Nitrate Positive H Urine Bilirubin Negative Urine Urobilinogen Less than 2 Ur Leukocyte Esterase Large H Urine RBC 43 H Urine WBC Urine WBC Clumps Few H Ur Squamous Epith Cells <1 Calcium Oxalate Crystal Occasional H Urine Bacteria Many H Urine Mucus Few H Micro UA Comment Culture indicated Ur Microscopic Review Not Reportable Urine Culture Comments Culture indicated 07/31/18 07/30/18 07/30/18 03:30 20:54 17:07 POC Glucose 140 H 160 H 155 H Urine Color Urine Clarity Urine pH Ur Specific [place] Urine Protein Urine Glucose (UA) Urine Ketones Urine Occult Blood Urine Nitrate Urine Bilirubin Urine Urobilinogen Ur Leukocyte Esterase Urine RBC Urine WBC Urine WBC Clumps Ur Squamous Epith Cells Calcium Oxalate Crystal Urine Bacteria Urine Mucus Micro UA Comment Ur Microscopic Review Urine Culture Comments 07/30/18 13:28 POC Glucose 201 H Urine Color Urine Clarity Urine pH Ur Specific [place] Urine Protein Urine Glucose (UA) Urine Ketones Urine Occult Blood Urine Nitrate Urine Bilirubin Urine Urobilinogen Ur Leukocyte Esterase Urine RBC Urine WBC Urine WBC Clumps Ur Squamous Epith Cells Calcium Oxalate Crystal Urine Bacteria Urine Mucus Micro UA Comment Ur Microscopic Review Urine Culture Comments - Impressions ITS Impressions Lumbar Spine X-Ray 07/27/18 00:00 CONCLUSION: 1. L4-S1 posterior fusion, as above. Discharge Plan - Discharge Order Discharge Orders: Discharge Order (Routine); Ordered 07/31/18 Ordered By: Alejandro Cortes - Physicians Team Primary Care Provider: Jose Armando Bailey Attending Provider: Azar Mckoy Other Providers: Noel Adam MD ; Errol Mojica MD ; [facility],Agency - Rxs /Orders / Referrals /Forms Prescriptions: New cyclobenzaprine 10 mg Tablet 10 mg PO Q8H PRN (Reason: Muscle Spasm) Qty: 30 RF: 0 Continue ascorbic acid (vitamin C) [Vitamin C] 500 mg Tablet 1,000 mg PO DAILY atorvastatin 40 mg Tablet 40 mg PO HS cholecalciferol (vitamin D3) [Vitamin D3] 2,000 unit Capsule 2,000 unit PO DAILY epinephrine [EpiPen] 0.3 mg/0.3 mL Auto-Injector 0.3 mg IM Q15M PRN (Reason: Allergic Reaction) gabapentin 300 mg Capsule 300 mg PO QID glipizide 5 mg Tablet 5 mg PO BID metformin 500 mg Tablet 500 mg PO BID omeprazole 20 mg Capsule,Delayed Release(Dr/Ec) 20 mg PO DAILY potassium gluconate 550 mg (90 mg) Tablet 550 mg PO BID torsemide 20 mg Tablet 20 mg PO PRN vitamin E 400 unit Capsule 400 unit PO DAILY Referrals: Jose Armando Bailey MD [Primary Care Provider] - See Instructions [facility]ency [Agency] - See Instructions (Agency will call to set up appointment) - Discharge Instructions Patient Printed Instructions: Laminectomy (DC)
[2018-07-31] MEDS: Sod Chloride 0.9% Inj 1,000 ML IV.SIG SCH (17:07)
--- NOTE | 2018-07-31 19:40 | P.PNNS ---
Subjective Interval history: 3/2. Pain is better controlled with 7.5 mg morphine treatments. Physical capacity is improving. Reports constipation Physical Exam Vital signs: Vital Signs 07/30/18 19:45 07/30/18 23:25 07/31/18 04:00 Temperature 98.3 F 97.8 F 97.9 F Pulse Rate 86 83 74 Respiratory Rate 19 Blood Pressure 127/60 131/62 118/73 Pulse Oximetry 91 L 97 98 07/31/18 07:35 07/31/18 11:54 07/31/18 15:32 Temperature 97.8 F 98 F 97.4 F L Pulse Rate 86 74 82 Respiratory Rate 18 18 18 Blood Pressure 110/58 L 124/63 138/65 Pulse Oximetry 95 93 L 96 Intake & Output 07/31/18 07/31/18 08/01/18 06:59 18:59 06:59 Intake Total 1440 / 1440 Output Total 500 / 500 Balance - / -25 940 / 940 Weight 88.2 kg Intake: Oral 1440 / 1440 Output: Urine 500 / 500 Wound Drainage Lower Lumbar Other: # Voids 3 1 Narrative: GENERAL: Elderly female, lying in bed, no acute distress, arousing from anesthesia HEENT: Normocephalic. Atraumatic. Pupils equal, round, reactive, conjugate. Mucous membranes are moist NECK: Trachea is midline. There is no JVD. CHEST: Equal chest rise. Nasal cannula oxygen. CARDIOVASCULAR: Normal rate, regular rhythm. Sinus. ABDOMEN: Soft, nontender, nondistended. No guarding. MUSCULOSKELETAL: Pulses 2+. No peripheral edema. A RADHA drain exits the lumbar back with a minimal amount of sanguinous output. There is a dressing over the lumbar spine clean dry and intact. NEUROLOGICAL: RASS -1. Arouses easily. Follows commands in all 4 extremities. Muscular skeletal strength appears to be 5/5 in all 4 extremities. Sensation grossly intact. No focal deficits. - Urinary Catheter Management Indwelling Urethral Catheter Cath placed during this visit: yes, but has since been removed by the nurse Reason for continuing: Decision to DC catheter Insertion date: 07/27/18 Insertion time: 13:35 Removal date: 07/29/18 Removal time: 17:30 Straight Cath placed during this visit: no Assessment and Plan - Assessment (1) Degenerative spondylolisthesis Code(s): M43.10 - Spondylolisthesis, site unspecified Status: Acute (2) Degeneration of lumbar intervertebral disc Code(s): M51.36 - Other intervertebral disc degeneration, lumbar region Status : Acute (3) Diabetic peripheral neuropathy Code(s): E11.42 - Type 2 diabetes mellitus with diabetic polyneuropathy Status : Acute - Plan pod#2 Doing very well Continue with pain control Continue with daily PT Ambulation DVT prophylaxis Discharge planning [facility]
[2018-07-31] MEDS: Magnesium Citrate Liq 300 ML Bottle PO PRN (22:39)
[2018-08-01] MEDS: Sod Chloride 0.9% Inj 1,000 ML IV.SIG SCH ×2 (01:35→18:07)
[2018-08-01] MEDS: Insulin NovoLIN Regular Correctional Sugar Inj SQ SCH ×5 (04:44→22:00)
[2018-08-01] MEDS: Morphine Sulfate 15 MG IR Tablet PO PRN ×4 (06:40→22:02)
[2018-08-01 07:34] LABS: Baso % (Auto) 0.3 % (0.0-2.0); Eos # (Auto) 0.3 th/mm3 (0.0-0.4); Eos % (Auto) 2.8 % (0.0-4.0); Hematocrit 30.5 % (35.0-46.0); Hemoglobin 9.8 gm/dL (11.6-15.3); Lymph % (Auto) 18.1 % (9.0-44.0); Mean Corpuscular HGB Conc 32.1 % (32.0-36.0); Mean Corpuscular Hemoglobin 26.9 pg (27.0-34.0); Mean Platelet Volume 8.5 fL (7.0-11.0); Mono % (Auto) 9.4 % (0.0-8.0); Neut # (Auto) 7.7 th/mm3 (1.8-7.7); Neut % (Auto) 69.4 % (16.0-70.0); Platelet Count 338 th/mm3 (150-450); Red Blood Count 3.63 mil/mm3 (4.00-5.30); White Blood Count 11.1 th/mm3 (4.0-11.0)
[2018-08-01 08:12] LABS: Alanine Aminotransferase 21 U/L (10-53); Albumin 2.6 g/dL (3.4-5.0); Alkaline Phosphatase 106 U/L (45-117); Anion Gap 6 meq/L (5-15); Aspartate Aminotransferase 21 U/L (15-37); Blood Urea Nitrogen 18 mg/dL (7-18); Calcium 8.7 mg/dL (8.5-10.1); Carbon Dioxide 34.4 meq/L (21.0-32.0); Chloride 100 meq/L (98-107); Glomerular Filtration Rate 48 mL/min (>89); Glucose,Random 164 mg/dL (74-106); Potassium 3.6 meq/L (3.5-5.1); Sodium 140 meq/L (136-145); Total Protein 6.5 g/dL (6.4-8.2)
[2018-08-01] MEDS: Torsemide 20 MG Tablet PO SCH (08:41)
[2018-08-01] MEDS: Ascorbic Acid 500 MG Tablet PO SCH ×2 (08:46→20:39)
[2018-08-01] MEDS: Senna/Docusate Sodium 8.6/50 MG Tablet PO SCH (08:46)
[2018-08-01] MEDS: Gabapentin 300 MG Capsule PO SCH ×4 (08:47→20:39)
[2018-08-01] MEDS: Magnesium Citrate Liq 300 ML Bottle PO PRN (13:19)
--- NOTE | 2018-08-01 13:24 | P.PNIM ---
Subjective Interval history: Patient has slowly improving functional abilities through time. At this point she is not stable for return to home. She would be stable for transfer to residential facility after cleared by neurosurgery. Physical Exam Vital signs: Vital Signs 07/31/18 15:32 07/31/18 20:00 07/31/18 23:40 Temperature 97.4 F L 98.0 F 98.1 F Pulse Rate 82 86 84 Respiratory Rate 18 18 19 Blood Pressure 138/65 155/70 H 137/63 Pulse Oximetry 96 95 99 08/01/18 00:00 08/01/18 04:10 08/01/18 05:34 Temperature 98.3 F Pulse Rate 83 Respiratory Rate 16 20 16 Blood Pressure 131/66 Pulse Oximetry 95 08/01/18 07:07 08/01/18 11:30 Temperature 97.9 F 98.1 F Pulse Rate 82 83 Respiratory Rate 16 16 Blood Pressure 136/64 134/64 Pulse Oximetry 95 96 Intake & Output 07/31/18 08/01/18 08/01/18 18:59 06:59 18:59 Intake Total 1440 / 1440 Output Total 500 / 500 Balance 940 / 940 Weight 88.4 kg Intake: Oral 1440 / 1440 Output: Urine 500 / 500 Other: # Voids 1 3 Narrative: GENERAL: NAD, A&Ox3 HEAD: Normocephalic. NECK: Supple, trachea midline. No lymphadenopathy. EYES: No scleral icterus. No injection or drainage. CARDIOVASCULAR: Regular rate and rhythm without murmurs, gallops, or rubs. RESPIRATORY: Breath sounds equal bilaterally. No accessory muscle use. GASTROINTESTINAL: Abdomen soft, non-tender, nondistended. MUSCULOSKELETAL: No cyanosis, or edema. Good range of motion due to recent lower back surgery. SKIN: Warm and dry. NEURO: No focal neurological deficits. Urinary Catheter Management Indwelling Urethral Catheter: Cath placed during this visit: yes, but has since been removed by the nurse Reason for continuing: Decision to DC catheter Insertion date: 07/27/18 Insertion time: 13:35 Removal date: 07/29/18 Removal time: 17:30 Straight: Cath placed during this visit: no Results Labs CBC & Chem 7: 08/01/18 07:02 08/01/18 07:02 Procedures Procedures: L4-L5, L5-S1 right laminectomy, interbody arthrodhesis using PEEK cage and autologous bone graft, L4-L5 instrumental fixation using transpedicular screws and rods, L4-L5 posterolateral fusion using autologous bone graft and demineralized bone matrix. Microsurgical dissection on 07/27/[address] Mckoy. Assessment and Plan Plan 73-year-old female postop day 1 status post L4-5, L5-S1 laminectomy and fusion. Admitted to ICU for close observation. Continue physical therapy. Plan for residential facility at discharge after cleared by neurosurgery. s/p L4/5, L5/S1 laminectomy and fusion Completed 07/[address] Mckoy Continue as needed pain treatments Twice daily naproxen started to augment pain treatment and minimize narcotic need Continue neurochecks Continue RADHA drain Neurosurgery following Obstructive sleep apnea Follow on pulse ox Minimize narcotics when possible Diabetes mellitus type 2 Follow blood sugars Insulin sliding scale Diabetic diet GERD Continue PPI Hyperlipidemia Continue statin Fibromyalgia Continue gabapentin DVT prophylaxis SCDs Progress Note: Quality VTE Deep Vein Thrombosis/Pulmonary Embolism Present on Admission: No
--- NOTE | 2018-08-01 18:46 | P.PNNS ---
Subjective Interval history: 3/. Feeling better. had a bowel movement today. No focal deficits Physical Exam Vital signs: Vital Signs 07/31/18 20:00 07/31/18 23:40 08/01/18 00:00 Temperature 98.0 F 98.1 F Pulse Rate 86 84 Respiratory Rate 18 19 16 Blood Pressure 155/70 H 137/63 Pulse Oximetry 95 99 08/01/18 04:10 08/01/18 05:34 08/01/18 07:07 Temperature 98.3 F 97.9 F Pulse Rate 83 82 Respiratory Rate 20 16 16 Blood Pressure 131/66 136/64 Pulse Oximetry 95 95 08/01/18 11:30 08/01/18 12:00 08/01/18 16:00 Temperature 98.1 F Pulse Rate 83 Respiratory Rate 16 16 16 Blood Pressure 134/64 Pulse Oximetry 96 08/01/18 16:50 Temperature 98.1 F Pulse Rate 83 Respiratory Rate 18 Blood Pressure 146/67 H Pulse Oximetry 92 L Intake & Output 07/31/18 08/01/18 08/01/18 18:59 06:59 18:59 Intake Total 1440 / 1440 Output Total 500 / 500 Balance 940 / 940 Weight 88.4 kg Intake: Oral 1440 / 1440 Output: Urine 500 / 500 Other: # Voids 1 3 Narrative: GENERAL: Elderly female, lying in bed, no acute distress, arousing from anesthesia HEENT: Normocephalic. Atraumatic. Pupils equal, round, reactive, conjugate. Mucous membranes are moist NECK: Trachea is midline. There is no JVD. CHEST: Equal chest rise. Nasal cannula oxygen. CARDIOVASCULAR: Normal rate, regular rhythm. Sinus. ABDOMEN: Soft, nontender, nondistended. No guarding. MUSCULOSKELETAL: Pulses 2+. No peripheral edema. A RADHA drain exits the lumbar back with a minimal amount of sanguinous output. There is a dressing over the lumbar spine clean dry and intact. NEUROLOGICAL: RASS -1. Arouses easily. Follows commands in all 4 extremities. Muscular skeletal strength appears to be 5/5 in all 4 extremities. Sensation grossly intact. No focal deficits. - Urinary Catheter Management Indwelling Urethral Catheter Cath placed during this visit: yes, but has since been removed by the nurse Reason for continuing: Decision to DC catheter Insertion date: 07/27/18 Insertion time: 13:35 Removal date: 07/29/18 Removal time: 17:30 Straight Cath placed during this visit: no Assessment and Plan - Assessment (1) Degenerative spondylolisthesis Code(s): M43.10 - Spondylolisthesis, site unspecified Status: Acute (2) Degeneration of lumbar intervertebral disc Code(s): M51.36 - Other intervertebral disc degeneration, lumbar region Status : Acute (3) Diabetic peripheral neuropathy Code(s): E11.42 - Type 2 diabetes mellitus with diabetic polyneuropathy Status : Acute - Plan pod#2 Doing very well. no complications. had a BM Continue with pain control Continue with daily PT Ambulation DVT prophylaxis Discharge planning tomorrow to rehab
[2018-08-02] MEDS: Senna/Docusate Sodium 8.6/50 MG Tablet PO SCH ×2 (00:28→08:32)
[2018-08-02] MEDS: Insulin NovoLIN Regular Correctional Sugar Inj SQ SCH ×2 (06:09→07:50)
[2018-08-02] MEDS: Morphine Sulfate 15 MG IR Tablet PO PRN ×2 (06:10→10:13)
[2018-08-02 07:44] VITALS: BP 126/58; PULSE 75; RESP 18; TEMP 97.4; O2SAT 95
[2018-08-02] MEDS: Sod Chloride 0.9% Inj 1,000 ML IV.SIG SCH (08:27)
[2018-08-02] MEDS: Torsemide 20 MG Tablet PO SCH (08:32)
[2018-08-02] MEDS: Ascorbic Acid 500 MG Tablet PO SCH (08:32)
[2018-08-02] MEDS: Gabapentin 300 MG Capsule PO SCH (08:32)
--- NOTE | 2018-08-02 11:00 | P.PNIM ---
Subjective Interval history: Patient had a bowel movement overnight. She is medically stable and cleared for discharge to alf facility. Discharge orders have been placed yesterday. Physical Exam Vital signs: Vital Signs 08/01/18 11:30 08/01/18 12:00 08/01/18 16:00 Temperature 98.1 F Pulse Rate 83 Respiratory Rate 16 16 16 Blood Pressure 134/64 Pulse Oximetry 96 08/01/18 16:50 08/01/18 19:55 08/02/18 00:15 Temperature 98.1 F 99.0 F 99.4 F Pulse Rate 83 83 79 Respiratory Rate 18 17 19 Blood Pressure 146/67 H 138/63 129/64 Pulse Oximetry 92 L 95 94 L 08/02/18 01:12 08/02/18 04:00 08/02/18 04:15 Temperature 97.3 F L Pulse Rate 91 H Respiratory Rate 16 16 21 Blood Pressure 140/74 Pulse Oximetry 94 L 08/02/18 07:44 Temperature 97.4 F L Pulse Rate 75 Respiratory Rate 18 Blood Pressure 126/58 L Pulse Oximetry 95 Intake & Output 08/01/18 08/02/18 08/02/18 18:59 06:59 18:59 Weight 87 kg Other: # Voids 2 Date of Last Bowel Movement 08/01/18 08/02/18 # Bowel Movements 2 Narrative: GENERAL: NAD, A&Ox3 HEAD: Normocephalic. NECK: Supple, trachea midline. No lymphadenopathy. EYES: No scleral icterus. No injection or drainage. CARDIOVASCULAR: Regular rate and rhythm without murmurs, gallops, or rubs. RESPIRATORY: Breath sounds equal bilaterally. No accessory muscle use. GASTROINTESTINAL: Abdomen soft, non-tender, nondistended. MUSCULOSKELETAL: No cyanosis, or edema. Good range of motion due to recent lower back surgery. SKIN: Warm and dry. NEURO: No focal neurological deficits. Urinary Catheter Management Indwelling Urethral Catheter: Cath placed during this visit: yes, but has since been removed by the nurse Reason for continuing: Decision to DC catheter Insertion date: 07/27/18 Insertion time: 13:35 Removal date: 07/29/18 Removal time: 17:30 Straight: Cath placed during this visit: no Results Labs CBC & Chem 7: 08/01/18 07:02 08/01/18 07:02 Labs: Microbiology 07/31/18 08:45 Clean Catch Urine Urine Culture - Final Klebsiella pneumoniae Citrobacter koseri Procedures Procedures: L4-L5, L5-S1 right laminectomy, interbody arthrodhesis using PEEK cage and autologous bone graft, L4-L5 instrumental fixation using transpedicular screws and rods, L4-L5 posterolateral fusion using autologous bone graft and demineralized bone matrix. Microsurgical dissection on 07/27/[address] Mckoy. Assessment and Plan (1) Degenerative spondylolisthesis: Code(s): M43.10 - Spondylolisthesis, site unspecified Status: Acute (2) Degeneration of lumbar intervertebral disc: Code(s): M51.36 - Other intervertebral disc degeneration, lumbar region Status: Acute (3) Diabetic peripheral neuropathy: Code(s): E11.42 - Type 2 diabetes mellitus with diabetic polyneuropathy Status: Acute Plan 73-year-old female postop day 1 status post L4-5, L5-S1 laminectomy and fusion. Admitted to ICU for close observation. Continue physical therapy. Plan for alf facility at discharge today. s/p L4/5, L5/S1 laminectomy and fusion Completed 07/[address] Mckoy Continue as needed pain treatments Twice daily naproxen started to augment pain treatment and minimize narcotic need Continue neurochecks Continue RADHA drain Neurosurgery following Obstructive sleep apnea Follow on pulse ox Minimize narcotics when possible Diabetes mellitus type 2 Follow blood sugars Insulin sliding scale Diabetic diet GERD Continue PPI Hyperlipidemia Continue statin Fibromyalgia Continue gabapentin DVT prophylaxis SCDs Progress Note: Quality VTE Deep Vein Thrombosis/Pulmonary Embolism Present on Admission: No
== END 2018-08-02 12:02 | DRG 453 ==
LOC: HSDI 11:33 → N03 23:22 → N05 07-29 19:23
PROVIDERS: ADMIT Neurological Surgery; ATTEND Neurological Surgery
DX: R53.1 Weakness; Z79.84 Long term (current) use of oral hypoglycemic drugs; G47.33 Obstructive sleep apnea (adult) (pediatric); E78.5 Hyperlipidemia, unspecified; M21.372 Foot drop, left foot; Z85.828 Personal history of other malignant neoplasm of skin; K59.00 Constipation, unspecified; E11.42 Type 2 diabetes mellitus with diabetic polyneuropathy; M51.16 Intervertebral disc disorders with radiculopathy, lumbar region; E78.00 Pure hypercholesterolemia, unspecified; M79.7 Fibromyalgia; K21.9 Gastro-esophageal reflux disease without esophagitis; I69.398 Other sequelae of cerebral infarction; M43.16 Spondylolisthesis, lumbar region; T40.2X5A Adverse effect of other opioids, initial encounter; G92 Toxic encephalopathy
CPT/HCPCS: 51798; 72100; 76000; 80053; 81001; 82948; 82962; 85025; 86850; 86900; 86901; 87077; 87086; 87186; 94150; 97110; 97161; 97167; 97530; 97535; C1713; C9290; J0131; J0690; J1100; J1200; J1580; J2020; J2250; J2270; J2405; J2704; J3010; J3370; J7030; J7120; L0484; L0560; L0565